=== PATIENT | female | born 1965 | race African-American/Black ===

== ENCOUNTER 2019-12-05 14:00 | Inpatient (IN) | payer OTHER ==
[2019-12-05 16:50] VITALS: BMI 16.9
--- NOTE | 2019-12-05 17:40 | HP ---
CIWA Score Nausea/Vomitin-No Nausea/No Vomiting Muscle Tremors: 3 Anxiety: 1-Mildly Anxious Agitation: 4-Moderately Restless Paroxysmal Sweats: 3 (Increased facial moisture) Orientation: 0-Oriented Tacttile Disturbances: 0-None Auditory Disturbances: 0-None Visual Disturbances: 0-None Headache: 3-Moderate (States headache is a "6") CIWA-Ar Total Score: 14 - Admission Criteria OASAS Guidelines: Admission for Medically Managed Detox: Requires at least one of the followin. CIWA greater than 12 2. Seizures within the past 24 hours 3. Delirium tremens within the past 24 hours 4. Hallucinations within the past 24 hours 5. Acute intervention needed for co occurring medical disorder 6. Acute intervention needed for co occurring psychiatric disorder 7. Severe withdrawal that cannot be handled at a lower level of care (continued vomiting, continued diarrhea, abnormal vital signs) requiring intravenous medication and/or fluids 8. Patient presents the following: CIWA greater than 12 Admission Criteria Met: Admission criteria met Admitting History and Physical - Past Medical History ...LMP: 08/19/15 - Smoking History Smoking history: Current every day smoker Have you smoked in the past 12 months: Yes Aproximately how many cigarettes per day: 15 - Alcohol/Substance Use Hx Alcohol Use: Yes Admission ROS [facility] - [facility] Chief Complaint: " I use alcohol and crack cocaine and I need to get off of it" Allergies/Adverse Reactions: Allergies Allergy/AdvReac Type Severity Reaction Status Date / Time No Known Allergies Allergy Verified 11/23/19 14:53 History of Present Illness: 53 yo presents w/ alcohol withdrawal, seeking detox. Denies seizures, blackouts, overdoses. Alcohol use began at age 18. Currently drinks 1/5 th vodka daily x 1 year. Last drink @ 3 a.m. today. Crack/cocaine began at age 29. Currently uses $2-300/day. Smokes x 1 yr. Nicotine use began at age 15. Smokes 1.5 PPD x over 1 yr. Denies other substance use. PARTIAL SEROQUEL FOUND IN PAT[facility]S [facility]. Informed of policy r/t attempting to bring in contraband or illicit substances. Patient states it will not happen again. PMHx: Cough x 5 days MHHx: Anxiety. Bipolar. Denies depression. Last saw a MH provider in the community. On seroquel. Denies thloughts of harming self or others. SHx: Homeless. Unemployed. Denies legal issues. Search Terms: Lee Ann Galicia, 1965 Search Date: 12/05/2019 05:32:58 PM The Drug Utilization Report below displays all of the controlled substance prescriptions, if any, that your patient has filled in the last twelve months. The information displayed on this report is compiled from pharmacy submissions to the Department, and accurately reflects the information as submitted by the pharmacies. This report was requested by: Terra Dobbs | Reference #: [id number] There are no results for the search terms that you entered. Exam Limitations: No Limitations - Ebola screening Have you traveled outside of the country in the last 21 days: No Have you had contact with anyone from an Ebola affected area: No Have you been sick,other than usual withdrawal symptoms: Yes (Cough x 5 days) Do you have a fever: No - Review of Systems Constitutional: Diaphoresis, Changes in sleep (Difficulty falling asleep), Unintentional Wgt. Loss EENT: reports: Blurred Vision Respiratory: reports: Cough (x 5 days.), Shortness of Breath (when smokes. Denies asthma or COPD) Cardiac: reports: No Symptoms Reported GI: reports: Constipated (Last BM 2 days ago. Juni.) : reports: No Symptoms Reported Musculoskeletal: reports: No Symptoms Reported Integumentary: reports: No Symptoms Reported Neuro: reports: Headache ((R) temporal dull headache "6"), Tremors Endocrine: reports: Increased Thirst Hematology: reports: Anemia ("Low blood") Psychiatric: reports: Orientated x3, Agitated, Anxious Patient History - Patient Medical History Hx Anemia: Yes Hx Asthma: No Hx Chronic Obstructive Pulmonary Disease (COPD): No Hx Cancer: No Hx Cardiac Disorders: No Hx Congestive Heart Failure: No Hx Hypertension: No Hx Hypercholesterolemia: No Hx Pacemaker: No HX Cerebrovascular Accident: No Hx Seizures: No Hx Dementia: No Hx Diabetes: No Hx Gastrointestinal Disorders: No Hx Liver Disease: No Hx Genitourinary Disorders: No Hx Sexually Transmitted Disorders: No Hx Renal Disease (ESRD): No Hx Thyroid Disease: No Hx Human Immunodeficiency Virus (HIV): No (negative) Hx Hepatitis C: No Hx Depression: Yes Hx Suicide Attempt: No Hx Bipolar Disorder: Yes (AND ANXIETY DISORDER) Hx Schizophrenia: No - Patient Surgical History Past Surgical History: Yes Hx Appendectomy: Yes (AT AGE OF 12 YEAERS) Other Surgical History: D &C X2 Anesthesia Reaction: No - PPD History Previous Implant?: Yes Documented Results: Negative w/proof Implanted On Prior [facility] Admission?: Yes PPD to be Administered?: Yes - Reproductive History Patient is a Female of Child Bearing Age (11 -55 yrs old): Yes Last Menstrual Period: 10/29/19 Patient : No - Smoking Cessation Smoking history: Current every day smoker Have you smoked in the past 12 months: Yes Aproximately how many cigarettes per day: 30 Cigars Per Day: 0 Hx Chewing Tobacco Use: No Initiated information on smoking cessation: Yes 'Breaking Loose' booklet given: 12/05/19 - Substance & Tx. History Hx Alcohol Use: Yes Hx Substance Use: Yes Substance Use Type: Alcohol, Cocaine Hx Substance Use Treatment: Yes (detox, ) - Substances abused Alcohol Substance route: Oral Frequency: Daily Amount used: 5th of vodka, 4 beers. Age of first use: 18 Date of last use: 12/05/19 Crack Substance route: Smoking Frequency: Daily Amount used: 2 to 3 hundred dollars. Age of first use: 29 Date of last use: 12/05/19 Admission Physical Exam S - Vital Signs Vital Signs: Vital Signs - 24 hr 12/05/19 16:42 Temperature 96.9 F L Pulse Rate 89 Respiratory 18 Rate Blood Pressure 139/71 - Physical General Appearance: Yes: Mild Distress, Thin, Irritable, Sweating (Increased facial moisture), Anxious HEENTM: Yes: EOMI, Hearing grossly Normal, Normocephalic, Normal Voice, BON, Pharynx Normal, Other (Dry mucous membranes. Thickened whitish saliva) Respiratory: Yes: Lungs Clear (Pulse Ox 97%), Normal Breath Sounds, No Respiratory Distress, Other (Spontaneous cough) Neck: Yes: No masses,lesions,Nodules, Supple Breast: Yes: Breast Exam Deferred Cardiology: Yes: Regular Rhythm, S1, S2 (split), Murmur Abdominal: Yes: Non Tender, Soft, Increased Bowel Sounds, Distended (Slight distention) Genitourinary: Yes: Within Normal Limits Back: Yes: Normal Inspection Musculoskeletal: Yes: full range of Motion, Gait Steady Extremities: Yes: Normal Capillary Refill, Normal Range of Motion, Tremors ( Mild tremors felt) Neurological: Yes: eradicator II-XII NML intact, Fully Oriented, Alert, Motor Strength 5/5, Normal Response Integumentary: Yes: Normal Color, Warm, Moist (Increased facial moisture), Other (Decreased skin turgor (except for facial area)) Lymphatic: Yes: Within Normal Limits - Diagnostic (1) Underweight Current Visit: Yes Status: Chronic (2) Dehydration Current Visit: Yes Status: Acute (3) Other cardiac sounds Current Visit: Yes Status: Acute (4) Alcohol dependence with uncomplicated withdrawal Current Visit: Yes Status: Acute (5) Constipation Current Visit: Yes Status: Chronic Qualifiers: Constipation type: unspecified constipation type Qualified Code(s): K59.00 - Constipation, unspecified (6) Crack cocaine use Current Visit: No Status: Chronic (7) Nicotine dependence Current Visit: Yes Status: Chronic Qualifiers: Nicotine product type: cigarettes Substance use status: uncomplicated Qualified Code(s): F17.210 - Nicotine dependence, cigarettes, uncomplicated (8) Cough Current Visit: Yes Status: Acute Cleared for Admission [facility] - Detox or Rehab [facility] Level of Care: Medically Managed Detox Regimen/Protocol: Librium Claeared for Rehab Admission: No Breathalyzer - Breathalyzer Breathalyzer: 0 Urine Drug Screen - Test Device Lot number: [id number] Expiration date: 09/18/21 - Control Is test valid?: Yes - Results Drug screen NEGATIVE: No Urine drug screen results: WAYLON-Cocaine Inpatient Rehab Admission - Rehab Decision to Admit Inpatient rehab admission?: No
[2019-12-05] MEDS ORDERED: ACETAMINOPHEN 325 MG TABLET (FP) PO PRN ×2 (18:13)
[2019-12-05] MEDS ORDERED: MENTHOL/PHENOL 1 EACH UD MM PRN (18:13)
[2019-12-05] MEDS ORDERED: BISMUTH SUBSALICYLATE 524 MG/30 ML UD PO PRN (18:13)
[2019-12-05] MEDS ORDERED: MAG HYDROX/AL HYDROX/SIMETH 30 ML UNIT-DOSE CUP PO PRN (18:13)
[2019-12-05] MEDS ORDERED: MAGNESIUM CITRATE 300 ML BOTTLE PO PRN (18:13)
[2019-12-05] MEDS ORDERED: MAGNESIUM HYDROX 2400MG/30ML ORAL SUSPENSION 30 ML CUP PO PRN (18:13)
[2019-12-05] MEDS ORDERED: chlordiazePOXIDE HCL 10 MG CAPSULE PO PRN (18:13)
[2019-12-05] MEDS: guaiFENesin 200 MG/10 ML 10 ML UNIT-DOSE CUPS PO SCH (19:42)
[2019-12-06] MEDS: THIAMINE HCL 100 MG TABLET (FP) PO SCH ×2 (00:15→22:13)
[2019-12-06] MEDS: POLYETHYLENE GLYCOL 3350 119 GM BTL PO SCH ×2 (00:15→22:13)
[2019-12-06] MEDS: chlordiazePOXIDE HCL 25 MG CAPSULE PO SCH ×4 (00:15→22:13)
[2019-12-06] MEDS: guaiFENesin 200 MG/10 ML 10 ML UNIT-DOSE CUPS PO SCH ×4 (04:17→17:37)
[2019-12-06 10:30] LABS: HEMATOCRIT 40.5 % (32.4-45.2); HEMOGLOBIN 13.6 GM/dL (10.7-15.3); MCH 31.8 pg (25.7-33.7); MCHC 33.6 g/dl (32.0-36.0); MEAN CELL VOLUME 94.5 fl (80-96); MEAN PLT VOLUME 8.5 fl (7.5-11.1); PLATELET COUNT 416 K/MM3 (134-434); RBC 4.29 M/mm3 (3.60-5.2); RDW 12.8 % (11.6-15.6); WHITE BLOOD COUNT 7.6 K/mm3 (4.0-10.0)
[2019-12-06 10:39] LABS: BILIRUBIN,TOTAL 0.3 mg/dL (0.2-1); BLOOD UREA NITROGEN 10.9 mg/dL (7-18); CALCIUM 9.7 mg/dL (8.5-10.1); CREATININE 0.7 mg/dL (0.55-1.3); POTASSIUM 3.9 mmol/L (3.5-5.1); TOT PROT 6.4 g/dl (6.4-8.2)
--- NOTE | 2019-12-06 10:45 | EKG ---
Test Reason : Blood Pressure : / mmHG Vent. Rate : 084 BPM Atrial Rate : 084 BPM P-R Int : 128 ms QRS Dur : 090 ms QT Int : 390 ms P-R-T Axes : 060 043 058 degrees QTc Int : 460 ms NORMAL SINUS RHYTHM NONSPECIFIC T WAVE ABNORMALITY PROLONGED QT ABNORMAL ECG NO PREVIOUS ECGS AVAILABLE Confirmed by Ash Walls MD ([id number]) on 12/06/2019 10:44:40 AM Referred By: SCAR Confirmed By:Ash Walls MD
--- NOTE | 2019-12-06 10:49 | PN ---
S CIWA - CIWA Score Nausea/Vomitin-No Nausea/No Vomiting Muscle Tremors: 3 Anxiety: 3 Agitation: 3 Paroxysmal Sweats: 3 Orientation: 0-Oriented Tacttile Disturbances: 0-None Auditory Disturbances: 0-None Visual Disturbances: 0-None Headache: 0-None Present CIWA-Ar Total Score: 12 [facility] Progress Note (SOAP) Subjective: sweats shakes chills headache interrupted sleep Objective: 12/06/19 10:30 Vital Signs Temperature 98.2 F 12/06/19 07:03 Pulse Rate 80 12/06/19 07:03 Respiratory Rate 18 12/06/19 07:03 Blood Pressure 125/50 L 12/06/19 07:03 O2 Sat by Pulse Oximetry (%) Laboratory Tests 12/05/19 12/06/19 17:13 07:45 WBC 7.6 RBC 4.29 Hgb 13.6 Hct 40.5 D MCV 94.5 MCH 31.8 D MCHC 33.6 RDW 12.8 D Plt Count 416 D MPV 8.5 D POC Urine HCG, Qual Negative rest of labs pending aaox3 ambulating no acute distress Assessment: 12/06/19 10:50 withdrawal sx Plan: continue detox
[2019-12-06] MEDS: NICOTINE 21 MG/24 HOURS TOPICAL PATCH TD SCH (11:09)
[2019-12-06] MEDS: PRENATAL VITAMINS W/ FOLIC ACID TABLET (FP) PO SCH (11:10)
[2019-12-06] MEDS ORDERED: SIMETHICONE 80 MG TAB.CHEW (FP) PO PRN (15:26)
[2019-12-06] MEDS: IBUPROFEN 400 MG TABLET (FP) PO PRN (17:36)
[2019-12-06] MEDS: MELATONIN 5 MG TABLETS PO PRN (22:14)
[2019-12-07] MEDS: guaiFENesin 200 MG/10 ML 10 ML UNIT-DOSE CUPS PO SCH ×4 (01:10→22:39)
[2019-12-07] MEDS: chlordiazePOXIDE 5 MG CAPSULE PO SCH ×3 (06:10→22:39)
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
[2019-12-07] MEDS: PRENATAL VITAMINS W/ FOLIC ACID TABLET (FP) PO SCH (11:37)
[2019-12-07] MEDS: NICOTINE 21 MG/24 HOURS TOPICAL PATCH TD SCH (11:37)
[2019-12-07] MEDS: IBUPROFEN 400 MG TABLET (FP) PO PRN (14:40)
--- NOTE | 2019-12-07 15:52 | PN ---
S CIWA - CIWA Score Nausea/Vomitin-Mild Nausea/No Vomiting Muscle Tremors: 2 Anxiety: 2 Agitation: 2 Paroxysmal Sweats: No Perspiration Orientation: 0-Oriented Tacttile Disturbances: 1-Very Mild Itch/Numbness Auditory Disturbances: 0-None Visual Disturbances: 0-None Headache: 2-Mild CIWA-Ar Total Score: 10 S Progress Note (SOAP) Subjective: alert,irritable,anxious,interrupted sleep,tremor,coughing Objective: 12/07/19 15:51 Vital Signs Temperature 97.8 F 12/07/19 13:59 Pulse Rate 81 12/07/19 13:59 Respiratory Rate 17 12/07/19 13:59 Blood Pressure 132/79 12/07/19 13:59 O2 Sat by Pulse Oximetry (%) Laboratory Last Values WBC 7.6 K/mm3 (4.0-10.0) 12/06/19 07:45 RBC 4.29 M/mm3 (3.60-5.2) 12/06/19 07:45 Hgb 13.6 GM/dL (10.7-15.3) 12/06/19 07:45 Hct 40.5 % (32.4-45.2) D 12/06/19 07:45 MCV 94.5 fl (80-96) 12/06/19 07:45 MCH 31.8 pg (25.7-33.7) D 12/06/19 07:45 MCHC 33.6 g/dl (32.0-36.0) 12/06/19 07:45 RDW 12.8 % (11.6-15.6) D 12/06/19 07:45 Plt Count 416 K/MM3 (134-434) D 12/06/19 07:45 MPV 8.5 fl (7.5-11.1) D 12/06/19 07:45 Sodium 145 mmol/L (136-145) 12/06/19 07:45 Potassium 3.9 mmol/L (3.5-5.1) 12/06/19 07:45 Chloride 111 mmol/L (98-107) H 12/06/19 07:45 Carbon Dioxide 27 mmol/L (21-32) 12/06/19 07:45 Anion Gap 7 MMOL/L (8-16) L 12/06/19 07:45 BUN 10.9 mg/dL (7-18) 12/06/19 07:45 Creatinine 0.7 mg/dL (0.55-1.3) 12/06/19 07:45 Est GFR (CKD-EPI)AfAm 116.27 12/06/19 07:45 Est GFR (CKD-EPI)NonAf 100.32 12/06/19 07:45 Random Glucose 102 mg/dL (74-106) 12/06/19 07:45 Calcium 9.7 mg/dL (8.5-10.1) 12/06/19 07:45 Total Bilirubin 0.3 mg/dL (0.2-1) 12/06/19 07:45 AST 13 U/L (15-37) L 12/06/19 07:45 ALT 27 U/L (13-61) 12/06/19 07:45 Alkaline Phosphatase 105 U/L (45-117) 12/06/19 07:45 Total Protein 6.4 g/dl (6.4-8.2) 12/06/19 07:45 Albumin 3.0 g/dl (3.4-5.0) L 12/06/19 07:45 POC Urine HCG, Qual Negative 12/05/19 17:13 RPR Titer Nonreactive (NONREACTIVE) 12/06/19 07:45 Assessment: 12/07/19 15:51 withdrawal symptom Plan: continue detox librium regimen
[2019-12-07] MEDS ORDERED: QUEtiapine FUMARATE 100 MG TABLET (FP) PO SCH (22:00)
[2019-12-07] MEDS: QUEtiapine FUMARATE 100 MG TABLET (FP) PO SCH (22:39)
[2019-12-07] MEDS: THIAMINE HCL 100 MG TABLET (FP) PO SCH (22:39)
[2019-12-08] MEDS ORDERED: chlordiazePOXIDE HCL 10 MG CAPSULE PO PRN
[2019-12-08] MEDS: guaiFENesin 200 MG/10 ML 10 ML UNIT-DOSE CUPS PO SCH (01:17)
[2019-12-08] MEDS: chlordiazePOXIDE HCL 10 MG CAPSULE PO SCH ×2 (07:25→15:56)
--- NOTE | 2019-12-08 10:39 | DS ---
[facility] Detox Discharge Summary Admission Date: 12/05/19 Discharge Date: 12/08/19 - History Present History: Alcohol Dependence, Cocaine Dependence Pertinent Past History: Pt was admitted three days ago for detox from alcohol and cocaine use. Pt states feeling fine today. No complaints. Going to rehab at [facility] - [facility]. Vital Signs - 24 hr 12/07/19 12/07/19 12/07/19 13:59 16:44 21:00 Temperature 97.8 F 99.1 F 97.9 F Pulse Rate 81 81 80 Respiratory 17 17 16 Rate Blood Pressure 132/79 119/74 110/74 12/08/19 12/08/19 12/08/19 00:32 03:57 07:31 Temperature 100.8 F H Pulse Rate 91 H Respiratory 20 18 18 Rate Blood Pressure 115/71 12/08/19 12/08/19 08:50 10:28 Temperature 98.2 F 98.2 F Pulse Rate 97 H 97 H Respiratory 18 18 Rate Blood Pressure 107/48 L 122/65 Laboratory Tests 12/05/19 12/06/19 12/06/19 17:13 07:45 07:45 WBC 7.6 RBC 4.29 Hgb 13.6 Hct 40.5 D MCV 94.5 MCH 31.8 D MCHC 33.6 RDW 12.8 D Plt Count 416 D MPV 8.5 D Sodium 145 Potassium 3.9 Chloride 111 H Carbon Dioxide 27 Anion Gap 7 L BUN 10.9 Creatinine 0.7 Est GFR (CKD-EPI)AfAm 116.27 Est GFR (CKD-EPI)NonAf 100.32 Random Glucose 102 Calcium 9.7 Total Bilirubin 0.3 AST 13 L ALT 27 Alkaline Phosphatase 105 Total Protein 6.4 Albumin 3.0 L POC Urine HCG, Qual Negative RPR Titer 12/06/19 07:45 WBC RBC Hgb Hct MCV MCH MCHC RDW Plt Count MPV Sodium Potassium Chloride Carbon Dioxide Anion Gap BUN Creatinine Est GFR (CKD-EPI)AfAm Est GFR (CKD-EPI)NonAf Random Glucose Calcium Total Bilirubin AST ALT Alkaline Phosphatase Total Protein Albumin POC Urine HCG, Qual RPR Titer Nonreactive - Physical Exam Results Vital Signs: Vital Signs Temperature 98.2 F 12/08/19 10:28 Pulse Rate 97 H 12/08/19 10:28 Respiratory Rate 18 12/08/19 10:28 Blood Pressure 122/65 12/08/19 10:28 O2 Sat by Pulse Oximetry (%) - Treatment Hospital Course: Detox Protocol Followed, Detoxed Safely, Responded well, Discharged Condition Good - Medication Discharge Medications: Ambulatory Orders Quetiapine Fumarate [Seroquel] 100 tab PO HS #30 tablet 04/01/16 Quetiapine Fumarate [Seroquel -] 50 mg PO DAILY 11/23/19 - AMA Did Patient Leave Against Medical Advice: No
[2019-12-08] MEDS: PRENATAL VITAMINS W/ FOLIC ACID TABLET (FP) PO SCH (12:05)
[2019-12-08] MEDS: NICOTINE 21 MG/24 HOURS TOPICAL PATCH TD SCH (12:05)
[2019-12-08 15:01] LABS: EPI CELLS 16.4 /HPF (0-5/HPF); HYALINE CASTS 1 /lpf (0-8); PH,URINE 7.5 (5.0-8.0); URINE APPEARANCE CLOUDY; URINE BACTERIA 312.3 /hpf (NEGATIVE); URINE BILIRUBIN NEGATIVE (NEGATIVE); URINE COLOR YELLOW; URINE GLUCOSE (UA) NEGATIVE (NEGATIVE); URINE KETONE NEGATIVE (NEGATIVE); URINE LEUK ESTERASE TRACE (NEGATIVE); URINE NITRITE NEGATIVE (NEGATIVE); URINE PROTEIN NEGATIVE (NEGATIVE); URINE RBC 2 /hpf (0-4); URINE UROBILINOGEN 0.2 mg/dL (0.2-1.0); URINE WBC 10 /hpf (0-5)
--- NOTE | 2019-12-08 19:25 | PN ---
[facility] Progress Note Note: Patient transferred from detox to rehab. Detox
--- NOTE | 2019-12-08 19:27 | HP ---
[facility] Rehab Assess/Revision - Admission History Admitted to Rehab from: [facility] Date of Admission to Rehab: 12/08/2019 - Vital signs Vital Signs: Vital Signs Period Temp Pulse Resp BP Sys/Sesay Pulse Ox Last 24 Hr 97.9 F-100.8 F 80-99 16-20 107-122/47-74 - Findings Detox History & Physical reviewed: Yes Concur with findings: Yes Comments/Additional Findings: PATIENT DETOXED FROM ALCOHOL , STABLE, AND TRANSFERED FROM DETOX UNIT TO REHAB. Inpatient Rehab Admission - Rehab Decision to Admit Inpatient rehab admission?: Yes - Initial Determination Are CD services needed?: Yes Free of communicable disease: Yes Not in need of hospitalization: Yes - Rehab Admission Criteria Previous failed treatment: Yes Poor recovery environment: Yes Comorbidities: Yes Lacks judgement: No Patient is meeting Inpatient Rehab admission criteria:: Yes
[2019-12-08] MEDS: QUEtiapine FUMARATE 100 MG TABLET (FP) PO SCH (22:20)
[2019-12-08] MEDS: THIAMINE HCL 100 MG TABLET (FP) PO SCH (22:20)
[2019-12-08] MEDS: DOCUSATE SODIUM 100 MG CAPSULE (FP) PO SCH (22:20)
[2019-12-08] MEDS: IBUPROFEN 400 MG TABLET (FP) PO PRN (22:21)
[2019-12-09] MEDS ORDERED: chlordiazePOXIDE HCL 10 MG CAPSULE PO ONE (05:00)
[2019-12-09] MEDS: DOCUSATE SODIUM 100 MG CAPSULE (FP) PO SCH ×3 (06:57→21:13)
[2019-12-09] MEDS: NICOTINE 21 MG/24 HOURS TOPICAL PATCH TD SCH (10:45)
[2019-12-09] MEDS: PRENATAL VITAMINS W/ FOLIC ACID TABLET (FP) PO SCH (10:45)
[2019-12-09] MEDS: THIAMINE HCL 100 MG TABLET (FP) PO SCH (21:13)
[2019-12-09] MEDS: QUEtiapine FUMARATE 100 MG TABLET (FP) PO SCH (21:13)
[2019-12-10] MEDS: DOCUSATE SODIUM 100 MG CAPSULE (FP) PO SCH ×3 (06:35→21:02)
[2019-12-10] MEDS: PRENATAL VITAMINS W/ FOLIC ACID TABLET (FP) PO SCH (10:07)
[2019-12-10] MEDS ORDERED: NICOTINE POLACRILEX 2 MG GUM BUC PRN (10:51)
[2019-12-10] MEDS: NICOTINE 21 MG/24 HOURS TOPICAL PATCH TD SCH ×2 (11:06→11:07)
[2019-12-10] MEDS: IBUPROFEN 400 MG TABLET (FP) PO PRN (14:19)
[2019-12-10] MEDS: METHOCARBAMOL 500 MG TABLET PO PRN (14:19)
[2019-12-10] MEDS: THIAMINE HCL 100 MG TABLET (FP) PO SCH (21:03)
[2019-12-10] MEDS: QUEtiapine FUMARATE 100 MG TABLET (FP) PO SCH (21:03)
[2019-12-11] MEDS: DOCUSATE SODIUM 100 MG CAPSULE (FP) PO SCH ×3 (06:39→21:30)
[2019-12-11] MEDS: IBUPROFEN 400 MG TABLET (FP) PO PRN (06:58)
[2019-12-11] MEDS: METHOCARBAMOL 500 MG TABLET PO PRN (06:58)
[2019-12-11] MEDS: PRENATAL VITAMINS W/ FOLIC ACID TABLET (FP) PO SCH (10:51)
[2019-12-11] MEDS: NICOTINE 21 MG/24 HOURS TOPICAL PATCH TD SCH (10:51)
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
[2019-12-11] MEDS: MINERAL OIL/PETROLAT/WATER TOPICAL CREAM 113 GM JAR TP SCH (15:59)
[2019-12-11] MEDS: THIAMINE HCL 100 MG TABLET (FP) PO SCH (21:30)
[2019-12-11] MEDS: QUEtiapine FUMARATE 100 MG TABLET (FP) PO SCH (21:30)
[2019-12-12] MEDS: DOCUSATE SODIUM 100 MG CAPSULE (FP) PO SCH ×3 (06:43→21:05)
[2019-12-12] MEDS: NICOTINE 21 MG/24 HOURS TOPICAL PATCH TD SCH (10:37)
[2019-12-12] MEDS: MINERAL OIL/PETROLAT/WATER TOPICAL CREAM 113 GM JAR TP SCH (10:39)
[2019-12-12] MEDS ORDERED: PT OWN MED DRAWER 7, Y5N ONE (10:39)
[2019-12-12] MEDS: IBUPROFEN 400 MG TABLET (FP) PO PRN (10:40)
[2019-12-12] MEDS: PRENATAL VITAMINS W/ FOLIC ACID TABLET (FP) PO SCH (10:40)
--- NOTE | 2019-12-12 11:26 | PN ---
Psychiatric Progress Note Vital Signs: Vital Signs Period Temp Pulse Resp BP Sys/Sesay Pulse Ox Last 24 Hr 16-16 Date of Session: 12/12/19 Chief Complaint:: "i'm not sleeping well." HPI: Patient admitted to for alcohol and cocaine dependence. Consultation ordered as patient reports difficulty sleeping through the night. ROS: Patient is calm, cooperative and alert + Oriented X3. Patient presents as mildly lethagic. Current Medications: Active Medications Generic Name Dose Route Start Last Admin Trade Name Freq PRN Reason Stop Dose Admin Acetaminophen 650 mg 12/05/19 18:13 Tylenol - PO Q6H PRN PAIN LEVEL 4 - 6 Acetaminophen 650 mg 12/05/19 18:13 Tylenol - PO Q6H PRN FEVER Al Hydroxide/Mg Hydroxide 30 ml 12/05/19 18:13 Mylanta Oral Suspension - PO Q6H PRN DYSPEPSIA Bismuth Subsalicylate 524 mg 12/05/19 18:13 Pepto-Bismol - PO Q1H PRN DIARRHEA Docusate Sodium 100 mg 12/08/19 22:00 12/12/19 06:43 Colace - PO Not Given TID ROSHNI Ibuprofen 400 mg 12/05/19 18:13 12/12/19 10:40 Motrin - PO 400 mg Q6H PRN Administration PAIN LEVEL 1 - 3 Magnesium Citrate 300 ml 12/05/19 18:13 Citroma - PO Q48H PRN CONSTIPATION Magnesium Hydroxide 30 ml 12/05/19 18:13 Milk Of Magnesia - PO PRN PRN CONSTIPATION Melatonin 5 mg 12/05/19 18:13 12/06/19 22:14 Melatonin PO 5 mg HS PRN Administration INSOMNIA Multi-Ingredient Lotion 1 applic 12/11/19 14:45 12/12/19 10:39 Eucerin (Small Jar) - TP 1 applic DAILY ROSHNI Administration Nicotine 21 mg 12/10/19 11:00 12/12/19 10:37 Nicoderm Patch - TD 21 mg DAILY ROSHNI Administration Nicotine Polacrilex 2 mg 12/05/19 18:13 Nicorette Gum - BUC Q2H PRN NICOTINE REPLACEMENT RX Nicotine Polacrilex 2 mg 12/10/19 10:51 Nicorette Gum - BUC Q2H PRN NICOTINE REPLACEMENT RX Multivit/Folic Acid/Iron 1 tab 12/06/19 10:00 12/12/19 10:40 Vitamins (Sjr) - PO 1 tab DAILY ROSHNI Administration Quetiapine Fumarate 100 mg 12/07/19 22:00 12/11/19 21:30 Seroquel - PO 100 mg HS ROSHNI Administration Simethicone 80 mg 12/06/19 15:26 Mylicon - PO Q4H PRN GAS Suvorexant 10 mg 12/12/19 22:00 Belsomra PO HS PRN INSOMNIA Thiamine HCl 100 mg 12/05/19 22:00 12/11/19 21:30 Vitamin B1 - PO 100 mg HS ROSHNI Administration Medication(s) Change(s): Yes. Will Belsomra 10mg HS PRN. Current Side Effect: No Lab tests ordered: No Lab tests reviewed: Yes Provider note:: Patient reports poor sleep. Patient inquiring on an increase in Seroquel. Patient is currently prescribed seroquel 100mg. Vital signs reviewed. Patient with a blood pressure of 100/ 58 on 12/11/19 and 110/66 on 12/12/19. Ms. Galicia reports history of one sycope eposide after accepting seroquel 200mg HS. At this time Seroquel will remain at 100mg HS. Will order Belsomra 10mg HS PRN. Benefits and side effects discussed. Verbal consent given. Total face to face time:: 25 Mental Status Exam - Mental Status Exam Alert and Oriented to: Time, Place, Person Cognitive Function: Good Patient Appearance: Well Groomed Mood: Withdrawn Affect: Appropriate Patient Behavior: Fatigued Speech Pattern: Appropriate Voice Loudness: Normal Thought Process: Intact, Goal Oriented Thought Disorder: Not Present Hallucinations: Denies Suicidal Ideation: Denies Homicidal Ideation: Denies Insight/Judgement: Poor Sleep: Poorly Appetite: Fair Muscle strength/Tone: Normal Gait/Station: Normal Psychiatric Treatment Plan - Problem List (1) Alcohol use disorder Current Visit: Yes (2) Cocaine dependence Current Visit: Yes (3) Substance-induced sleep disorder Current Visit: Yes (4) Nicotine dependence Current Visit: Yes Qualifiers: Nicotine product type: cigarettes Substance use status: uncomplicated Qualified Code(s): F17.210 - Nicotine dependence, cigarettes, uncomplicated (5) PTSD (post-traumatic stress disorder) Current Visit: Yes (6) Substance induced mood disorder Current Visit: Yes
[2019-12-12] MEDS: THIAMINE HCL 100 MG TABLET (FP) PO SCH (21:05)
[2019-12-12] MEDS: QUEtiapine FUMARATE 100 MG TABLET (FP) PO SCH (21:05)
[2019-12-12] MEDS ORDERED: SUVOREXANT 10 MG TABLET PO PRN (22:00)
[2019-12-13] MEDS: DOCUSATE SODIUM 100 MG CAPSULE (FP) PO SCH ×3 (06:39→21:41)
--- NOTE | 2019-12-13 09:22 | PN ---
[facility] Progress Note (SOAP) Subjective: Called to see patient for vomiting. Patient found sitting on floor vomiting. States she has been coughing and robitussin has not helped. Reports bringing up yellow sputum. She reports left sided flank pain and states that she was treated for the same at [facility] before coming here. Denies chest tube insertion and states she was told that it would resolve on its own. Also stated that she cannot sleep at night and that the seroquel dose in insufficient (N.B. patient was found with a seroquel in her sock upon admission examination). PMHx of constipation, last BM today. Ate a peanut butter sandwich after she vomited without any further vomiting. Objective: 12/13/19 09:28 Vital Signs Period Temp Pulse Resp BP Sys/Sesay Pulse Ox Last 24 Hr 97.9 F-98.0 F 91-106 16-18 102-110/56-66 12/13/19 09:32 p/E: General: Looks ill HEENTM: throat clear, nares clear Neck: supple Lungs: clear Heart: s1s2 ABD: soft, non-tender, non-distended, +BS Assessment: Vomiting, unspecified cause No signs of infection 12/13/19 09:33 12/13/19 09:35 Plan: CXR ordered Tigan ordered, prn Advised to increase fluids Psychiatric consult to evaluate for insomnia
[2019-12-13] MEDS ORDERED: TRIMETHOBENZAMIDE HCL 300 MG CAPSULE PO PRN (09:37)
[2019-12-13] MEDS: MINERAL OIL/PETROLAT/WATER TOPICAL CREAM 113 GM JAR TP SCH (10:36)
[2019-12-13] MEDS: NICOTINE 21 MG/24 HOURS TOPICAL PATCH TD SCH (10:36)
[2019-12-13] MEDS: PRENATAL VITAMINS W/ FOLIC ACID TABLET (FP) PO SCH (10:36)
[2019-12-13] MEDS: CYCLOBENZAPRINE HCL 5 MG TABLET PO PRN (21:41)
[2019-12-13] MEDS: THIAMINE HCL 100 MG TABLET (FP) PO SCH (21:41)
[2019-12-13] MEDS: QUEtiapine FUMARATE 100 MG TABLET (FP) PO SCH (21:41)
[2019-12-14] MEDS: DOCUSATE SODIUM 100 MG CAPSULE (FP) PO SCH ×3 (07:35→22:06)
[2019-12-14] MEDS: MINERAL OIL/PETROLAT/WATER TOPICAL CREAM 113 GM JAR TP SCH (09:37)
[2019-12-14] MEDS: NICOTINE 21 MG/24 HOURS TOPICAL PATCH TD SCH (09:37)
[2019-12-14] MEDS: PRENATAL VITAMINS W/ FOLIC ACID TABLET (FP) PO SCH (09:38)
[2019-12-14] MEDS: IBUPROFEN 400 MG TABLET (FP) PO PRN (09:39)
[2019-12-14] MEDS: THIAMINE HCL 100 MG TABLET (FP) PO SCH (22:06)
[2019-12-14] MEDS: QUEtiapine FUMARATE 100 MG TABLET (FP) PO SCH (22:06)
[2019-12-14] MEDS: MELATONIN 5 MG TABLETS PO PRN (22:07)
[2019-12-15] MEDS: DOCUSATE SODIUM 100 MG CAPSULE (FP) PO SCH ×3 (07:08→21:09)
[2019-12-15] MEDS: PRENATAL VITAMINS W/ FOLIC ACID TABLET (FP) PO SCH (09:47)
[2019-12-15] MEDS: NICOTINE 21 MG/24 HOURS TOPICAL PATCH TD SCH (09:47)
[2019-12-15] MEDS: MINERAL OIL/PETROLAT/WATER TOPICAL CREAM 113 GM JAR TP SCH (09:47)
[2019-12-15] MEDS: guaiFENesin 200 MG/10 ML 10 ML UNIT-DOSE CUPS PO PRN (14:02)
[2019-12-15] MEDS: QUEtiapine FUMARATE 100 MG TABLET (FP) PO SCH (21:07)
[2019-12-15] MEDS: MELATONIN 5 MG TABLETS PO PRN (21:07)
[2019-12-15] MEDS: THIAMINE HCL 100 MG TABLET (FP) PO SCH (21:07)
[2019-12-15] MEDS ORDERED: SUVOREXANT 10 MG TABLET PO PRN (22:00)
--- NOTE | 2019-12-15 22:25 | PN ---
[facility] Progress Note Note: Psychiatry Attending's note : Contact made with nurse in charge. Spoke via telephone with FRANCIS Raya. At 21:42. Issue : reason for request for psychiatric follow-up. As per nurse, patient has complained of daytime sleepiness. Ms Galicia has requested a decrease in ths dose of suvorexant. Belsomra has not been dispensed by the evening nurse. Held. Seroquel has already been given at time of this leader writer's call. Psychiatric re-consult in AM.
[2019-12-16] MEDS: DOCUSATE SODIUM 100 MG CAPSULE (FP) PO SCH ×3 (06:36→21:06)
[2019-12-16] MEDS: NICOTINE 21 MG/24 HOURS TOPICAL PATCH TD SCH (09:16)
[2019-12-16] MEDS: MINERAL OIL/PETROLAT/WATER TOPICAL CREAM 113 GM JAR TP SCH (09:17)
[2019-12-16] MEDS: PRENATAL VITAMINS W/ FOLIC ACID TABLET (FP) PO SCH (09:17)
[2019-12-16] MEDS: NICOTINE POLACRILEX 2 MG GUM BUC PRN ×2 (09:58→16:47)
[2019-12-16] MEDS: guaiFENesin 200 MG/10 ML 10 ML UNIT-DOSE CUPS PO PRN ×2 (09:58→16:44)
--- NOTE | 2019-12-16 14:37 | PN ---
Psychiatric Progress Note Vital Signs: Vital Signs Period Temp Pulse Resp BP Sys/Sesay Pulse Ox Last 24 Hr 98.2 F 98 16-16 104/69 Date of Session: 12/16/19 Chief Complaint:: "i'm not sleeping well." HPI: Patient admitted to for alcohol and cocaine dependence. Consultation ordered to address insomnia. ROS: Patient is alert +oriented x3. Current Medications: Active Medications Generic Name Dose Route Start Last Admin Trade Name Freq PRN Reason Stop Dose Admin Acetaminophen 650 mg 12/05/19 18:13 Tylenol - PO Q6H PRN PAIN LEVEL 4 - 6 Acetaminophen 650 mg 12/05/19 18:13 Tylenol - PO Q6H PRN FEVER Al Hydroxide/Mg Hydroxide 30 ml 12/05/19 18:13 Mylanta Oral Suspension - PO Q6H PRN DYSPEPSIA Bismuth Subsalicylate 524 mg 12/05/19 18:13 Pepto-Bismol - PO Q1H PRN DIARRHEA Cyclobenzaprine HCl 5 mg 12/13/19 14:44 12/13/19 21:41 Cyclobenzaprine Hcl PO 5 mg TID PRN Administration MUSCLE SPASMS Docusate Sodium 100 mg 12/08/19 22:00 12/16/19 13:09 Colace - PO Not Given TID ROSHNI Guaifenesin 10 ml 12/14/19 10:52 12/16/19 09:58 Robitussin - PO 10 ml Q4H PRN Administration COUGH Ibuprofen 400 mg 12/05/19 18:13 12/14/19 09:39 Motrin - PO 400 mg Q6H PRN Administration PAIN LEVEL 1 - 3 Magnesium Citrate 300 ml 12/05/19 18:13 Citroma - PO Q48H PRN CONSTIPATION Magnesium Hydroxide 30 ml 12/05/19 18:13 Milk Of Magnesia - PO PRN PRN CONSTIPATION Melatonin 5 mg 12/05/19 18:13 12/15/19 21:07 Melatonin PO 5 mg HS PRN Administration INSOMNIA Multi-Ingredient Lotion 1 applic 12/11/19 14:45 12/16/19 09:17 Eucerin (Small Jar) - TP Not Given DAILY ROSHNI Nicotine 21 mg 12/10/19 11:00 12/16/19 09:16 Nicoderm Patch - TD 21 mg DAILY ROSHNI Administration Nicotine Polacrilex 2 mg 12/05/19 18:13 12/16/19 09:58 Nicorette Gum - BUC 2 mg Q2H PRN Administration NICOTINE REPLACEMENT RX Nicotine Polacrilex 2 mg 12/10/19 10:51 Nicorette Gum - BUC Q2H PRN NICOTINE REPLACEMENT RX Multivit/Folic Acid/Iron 1 tab 12/06/19 10:00 12/16/19 09:17 Vitamins (Sjr) - PO 1 tab DAILY ROSHNI Administration Quetiapine Fumarate 100 mg 12/07/19 22:00 12/15/19 21:07 Seroquel - PO 100 mg HS ROSHNI Administration Simethicone 80 mg 12/06/19 15:26 Mylicon - PO Q4H PRN GAS Thiamine HCl 100 mg 12/05/19 22:00 12/15/19 21:07 Vitamin B1 - PO 100 mg HS ROSHNI Administration Trimethobenzamide HCl 300 mg 12/13/19 09:37 12/13/19 10:37 Tigan - PO 300 mg TID PRN Administration NAUSEA AND/OR VOMITING Medication(s) Change(s): Yes. Current Side Effect: No Lab tests ordered: No Lab tests reviewed: Yes Provider note:: Patient seen by service writer on 12/12/19 and was orderd belsomra 10mg for insomnia. Patient only recalls taking the medication once which led to daytime sleepiness. Patient has accepted melatonin 5mg and stated it is not effective. Patient not interested in accepting a higher dose of melatonin. Patient in agreement in accepting Belsomra 5mg HS PRN. Patient educated on the importance of proper sleep hygiene. Benefits and side effects discussed. Verbal consent given. Total face to face time:: 25 Mental Status Exam - Mental Status Exam Alert and Oriented to: Time, Place, Person Cognitive Function: Good Patient Appearance: Well Groomed Mood: Euthymic Affect: Appropriate Patient Behavior: Appropriate, Cooperative Speech Pattern: Appropriate Voice Loudness: Normal Thought Process: Intact, Goal Oriented Thought Disorder: Not Present Hallucinations: Denies Suicidal Ideation: Denies Homicidal Ideation: Denies Insight/Judgement: Poor Sleep: Poorly Appetite: Fair Muscle strength/Tone: Normal Gait/Station: Normal Psychiatric Treatment Plan - Problem List (1) Alcohol use disorder Current Visit: Yes (2) Cocaine dependence Current Visit: Yes (3) Substance-induced sleep disorder Current Visit: Yes (4) Nicotine dependence Current Visit: Yes Qualifiers: Nicotine product type: cigarettes Substance use status: uncomplicated Qualified Code(s): F17.210 - Nicotine dependence, cigarettes, uncomplicated (5) PTSD (post-traumatic stress disorder) Current Visit: Yes (6) Substance induced mood disorder Current Visit: Yes
[2019-12-16] MEDS ORDERED: PT OWN MED DRAWER 7, Y5N ONE (15:16)
[2019-12-16] MEDS: THIAMINE HCL 100 MG TABLET (FP) PO SCH (21:04)
[2019-12-16] MEDS: QUEtiapine FUMARATE 100 MG TABLET (FP) PO SCH (21:04)
[2019-12-16] MEDS: MELATONIN 5 MG TABLETS PO PRN (21:05)
[2019-12-16] MEDS: SUVOREXANT 5 MG TABLET PO PRN (21:06)
[2019-12-17] MEDS: DOCUSATE SODIUM 100 MG CAPSULE (FP) PO SCH ×3 (07:00→21:11)
[2019-12-17] MEDS ORDERED: PT OWN MED DRAWER 7, Y5N ONE (08:30)
[2019-12-17] MEDS: MINERAL OIL/PETROLAT/WATER TOPICAL CREAM 113 GM JAR TP SCH (09:12)
[2019-12-17] MEDS: NICOTINE 21 MG/24 HOURS TOPICAL PATCH TD SCH (09:12)
[2019-12-17] MEDS: guaiFENesin 200 MG/10 ML 10 ML UNIT-DOSE CUPS PO PRN (09:12)
[2019-12-17] MEDS: PRENATAL VITAMINS W/ FOLIC ACID TABLET (FP) PO SCH (09:12)
[2019-12-17] MEDS: QUEtiapine FUMARATE 100 MG TABLET (FP) PO SCH (21:11)
[2019-12-17] MEDS: THIAMINE HCL 100 MG TABLET (FP) PO SCH (21:11)
[2019-12-17] MEDS: MELATONIN 5 MG TABLETS PO PRN (21:12)
[2019-12-17] MEDS: SUVOREXANT 5 MG TABLET PO PRN (21:13)
[2019-12-18] MEDS: DOCUSATE SODIUM 100 MG CAPSULE (FP) PO SCH (06:50)
--- NOTE | 2019-12-18 09:13 | PN ---
[facility] Progress Note (SOAP) Subjective: c/o unresolved cough with greenish sputum. Reports changes to yellow/brown then green and has been having symptoms for 2 weeks and chest discomfort "when I cough". Denies fever or throat pain. Objective: 12/19/19 10:20 Vital Signs (72 hours) 12/17/19 12/17/19 12/18/19 03:26 06:40 00:39 Temperature 97.7 F Pulse Rate 77 Respiratory 16 18 16 Rate Blood Pressure 104/64 12/18/19 12/18/19 12/19/19 03:28 06:59 06:49 Temperature 97.8 F 97.9 F Pulse Rate 99 H 85 Respiratory 16 18 18 Rate Blood Pressure 117/70 113/66 Vital Signs - 24 hr 12/18/19 12/18/19 12/18/19 00:39 03:28 06:59 Temperature 97.8 F Pulse Rate 99 H Respiratory 16 16 18 Rate Blood Pressure 117/70 Cardiac:s1 s2,rrr Lungs:cta Throat:no swelling,redness. 12/19/19 10:27 Assessment: 12/19/19 10:23 Unresolving Cough with abnl sputum Plan: Will treat with Amoxicillin 500 mg po TID x 7 days increase po fluids Robitussin DM PRN as directed.
[2019-12-18] MEDS ORDERED: AMOXICILLIN 500 MG CAPSULE (FP) PO ONE (09:15)
[2019-12-18] MEDS: NICOTINE 21 MG/24 HOURS TOPICAL PATCH TD SCH (09:24)
[2019-12-18] MEDS: PRENATAL VITAMINS W/ FOLIC ACID TABLET (FP) PO SCH (09:24)
[2019-12-18] MEDS: MINERAL OIL/PETROLAT/WATER TOPICAL CREAM 113 GM JAR TP SCH (09:24)
[2019-12-18] MEDS: NICOTINE POLACRILEX 2 MG GUM BUC PRN (09:25)
[2019-12-18] MEDS: AMOXICILLIN 500 MG CAPSULE (FP) PO SCH ×2 (13:38→21:26)
[2019-12-18] MEDS: DOCUSATE SODIUM 100 MG CAPSULE (FP) PO PRN (21:26)
[2019-12-18] MEDS: CYCLOBENZAPRINE HCL 5 MG TABLET PO PRN (21:26)
[2019-12-18] MEDS: THIAMINE HCL 100 MG TABLET (FP) PO SCH (21:26)
[2019-12-18] MEDS: QUEtiapine FUMARATE 100 MG TABLET (FP) PO SCH (21:26)
[2019-12-18] MEDS: MELATONIN 5 MG TABLETS PO PRN (21:26)
[2019-12-19] MEDS: AMOXICILLIN 500 MG CAPSULE (FP) PO SCH ×3 (06:55→21:02)
[2019-12-19] MEDS ORDERED: PT OWN MED DRAWER 7, Y5N ONE (09:00)
[2019-12-19] MEDS: NICOTINE 21 MG/24 HOURS TOPICAL PATCH TD SCH (10:28)
[2019-12-19] MEDS: PRENATAL VITAMINS W/ FOLIC ACID TABLET (FP) PO SCH (10:28)
[2019-12-19] MEDS: NICOTINE POLACRILEX 2 MG GUM BUC PRN (10:29)
[2019-12-19] MEDS: MINERAL OIL/PETROLAT/WATER TOPICAL CREAM 113 GM JAR TP SCH (10:30)
[2019-12-19] MEDS: CYCLOBENZAPRINE HCL 5 MG TABLET PO PRN (21:02)
[2019-12-19] MEDS: QUEtiapine FUMARATE 100 MG TABLET (FP) PO SCH (21:02)
[2019-12-19] MEDS: THIAMINE HCL 100 MG TABLET (FP) PO SCH (21:02)
[2019-12-19] MEDS: MELATONIN 5 MG TABLETS PO PRN (21:02)
[2019-12-20] MEDS: AMOXICILLIN 500 MG CAPSULE (FP) PO SCH ×3 (06:59→21:25)
[2019-12-20] MEDS: NICOTINE 21 MG/24 HOURS TOPICAL PATCH TD SCH (09:12)
[2019-12-20] MEDS: PRENATAL VITAMINS W/ FOLIC ACID TABLET (FP) PO SCH (09:12)
[2019-12-20] MEDS: MINERAL OIL/PETROLAT/WATER TOPICAL CREAM 113 GM JAR TP SCH (09:12)
[2019-12-20] MEDS ORDERED: PT OWN MED DRAWER 7, Y5N ONE (09:40)
[2019-12-20] MEDS: THIAMINE HCL 100 MG TABLET (FP) PO SCH (21:25)
[2019-12-20] MEDS: QUEtiapine FUMARATE 100 MG TABLET (FP) PO SCH (21:25)
[2019-12-20] MEDS: CYCLOBENZAPRINE HCL 5 MG TABLET PO PRN (21:25)
[2019-12-20] MEDS: MELATONIN 5 MG TABLETS PO PRN (21:26)
[2019-12-21] MEDS: AMOXICILLIN 500 MG CAPSULE (FP) PO SCH ×3 (06:54→21:38)
[2019-12-21] MEDS: NICOTINE 21 MG/24 HOURS TOPICAL PATCH TD SCH (10:20)
[2019-12-21] MEDS: PRENATAL VITAMINS W/ FOLIC ACID TABLET (FP) PO SCH (10:21)
[2019-12-21] MEDS: MINERAL OIL/PETROLAT/WATER TOPICAL CREAM 113 GM JAR TP SCH (10:21)
--- NOTE | 2019-12-21 13:00 | PN ---
[facility] Progress Note (SOAP) Subjective: Patient to be discharged tomorrow. PMHx: 53 yo presents w/ alcohol use disorder; transferred from detox to rehab on 2019 Denies seizures, blackouts, overdoses. Alcohol use began at age 18. Currently drinks 1/5 th vodka daily x 1 year. Crack/cocaine began at age 29. Currently uses $2-300/day. Smokes x 1 yr. Nicotine use began at age 15. Smokes 1.5 PPD x over 1 yr. Denies other substance use. MHHx: Anxiety. Bipolar. Denies depression. Last saw a MH provider in the community. On seroquel. Denies thoughts of harming self or others. SHx: Homeless. Unemployed. Denies legal issues. HOSPITAL COURSE: Patient attended groups, had 1:1 with her counselor, and was seen by psychiatric service. She had one incident of vomiting that was resolved , and c/o cough with green sputum treated with amoxicillin. Objective: 12/21/19 13:02 Vital Signs Period Temp Pulse Resp BP Sys/Sesay Pulse Ox Last 24 Hr 97.9 F 81 16-18 93/61 P/E: General: no apparent distress HEENTM" normocephalic NECK: supple MSK: full weight bearing, steady gait NEURO: no cognitive deficits noted, Assessment: ETOH use disorder Medically stable for discharge 12/21/19 13:03 12/21/19 13:04 Plan: Patient will go to [facility] as tolerated Finish Amoxicillin prescription, 3 days left. Follow up with primary care at [facility].
--- NOTE | 2019-12-21 14:35 | DS ---
[facility] Rehab Discharge Summary - [facility] Rehab Discharge Summary Admission Date: 12/05/19 Discharge Date: 12/21/19 - History Present History: Alcohol dependence, Cocaine dependence Additional Comments: Pt is a 54 y/o female with a hx Pertinent Past History: Anemia - Discharge Physical Exam Vital Signs: Vital Signs Temperature 97.9 F 12/21/19 07:21 Pulse Rate 81 12/21/19 07:21 Respiratory Rate 18 12/21/19 07:21 Blood Pressure 93/61 12/21/19 07:21 O2 Sat by Pulse Oximetry (%) Pertinent Admission Physical Exam Findings: Laboratory Tests 12/05/19 12/06/19 12/06/19 17:13 07:45 07:45 WBC 7.6 RBC 4.29 Hgb 13.6 Hct 40.5 D MCV 94.5 MCH 31.8 D MCHC 33.6 RDW 12.8 D Plt Count 416 D MPV 8.5 D Sodium 145 Potassium 3.9 Chloride 111 H Carbon Dioxide 27 Anion Gap 7 L BUN 10.9 Creatinine 0.7 Est GFR (CKD-EPI)AfAm 116.27 Est GFR (CKD-EPI)NonAf 100.32 Random Glucose 102 Calcium 9.7 Total Bilirubin 0.3 AST 13 L ALT 27 Alkaline Phosphatase 105 Total Protein 6.4 Albumin 3.0 L Urine Color Urine Appearance Urine pH Ur Specific [place] Urine Protein Urine Glucose (UA) Urine Ketones Urine Blood Urine Nitrite Urine Bilirubin Urine Urobilinogen Ur Leukocyte Esterase Urine WBC (Auto) Urine RBC (Auto) Urine Casts (Auto) U Epithel Cells (Auto) Urine Bacteria (Auto) POC Urine HCG, Qual Negative RPR Titer Hep C Ab Diagnostic HIV 1&2 Ag/Ab, 4th Gen 12/06/19 12/08/19 12/13/19 07:45 10:20 07:35 WBC RBC Hgb Hct MCV MCH MCHC RDW Plt Count MPV Sodium Potassium Chloride Carbon Dioxide Anion Gap BUN Creatinine Est GFR (CKD-EPI)AfAm Est GFR (CKD-EPI)NonAf Random Glucose Calcium Total Bilirubin AST ALT Alkaline Phosphatase Total Protein Albumin Urine Color Yellow Urine Appearance Cloudy Urine pH 7.5 D Ur Specific [place] 1.011 Urine Protein Negative Urine Glucose (UA) Negative Urine Ketones Negative Urine Blood Negative Urine Nitrite Negative Urine Bilirubin Negative Urine Urobilinogen 0.2 Ur Leukocyte Esterase Trace Urine WBC (Auto) 10 Urine RBC (Auto) 2 Urine Casts (Auto) 1 U Epithel Cells (Auto) 16.4 Urine Bacteria (Auto) 312.3 POC Urine HCG, Qual RPR Titer Nonreactive Hep C Ab Diagnostic <0.1 HIV 1&2 Ag/Ab, 4th Gen 12/13/19 07:35 WBC RBC Hgb Hct MCV MCH MCHC RDW Plt Count MPV Sodium Potassium Chloride Carbon Dioxide Anion Gap BUN Creatinine Est GFR (CKD-EPI)AfAm Est GFR (CKD-EPI)NonAf Random Glucose Calcium Total Bilirubin AST ALT Alkaline Phosphatase Total Protein Albumin Urine Color Urine Appearance Urine pH Ur Specific [place] Urine Protein Urine Glucose (UA) Urine Ketones Urine Blood Urine Nitrite Urine Bilirubin Urine Urobilinogen Ur Leukocyte Esterase Urine WBC (Auto) Urine RBC (Auto) Urine Casts (Auto) U Epithel Cells (Auto) Urine Bacteria (Auto) POC Urine HCG, Qual RPR Titer Hep C Ab Diagnostic HIV 1&2 Ag/Ab, 4th Gen Non reactive - Treatment Discharge Condition: Discharge condition good Hospital Course: Rehabilitated safely - Medication Discharge Medications: Ambulatory Orders Quetiapine Fumarate [Seroquel] 100 tab PO HS #30 tablet 04/01/16 Quetiapine Fumarate [Seroquel -] 50 mg PO DAILY 11/23/19 Amoxicillin - [Amoxicillin 500mg Capsule -] 500 mg PO TID #14 capsule 12/21/19 - Medication-Assisted Treatment (MAT) Medication-Assisted Treatment (MAT): No - Discharge Instructions Diet, activity, other medical instructions: Diet: Activity: Other medical instructions: - Diagnosis (1) Alcohol use disorder Current Visit: Yes Status: Chronic (2) Cocaine dependence Current Visit: Yes Status: Chronic Qualifiers: Substance use status: uncomplicated Qualified Code(s): F14.20 - Cocaine dependence, uncomplicated (3) Nicotine dependence Current Visit: Yes Status: Chronic Qualifiers: Nicotine product type: cigarettes Substance use status: uncomplicated Qualified Code(s): F17.210 - Nicotine dependence, cigarettes, uncomplicated (4) Weight decreased Current Visit: Yes Status: Acute (5) Anemia Current Visit: Yes Status: Resolved Qualifiers: Iron deficiency anemia type: unspecified iron deficiency Qualified Code(s) : D50.9 - Iron deficiency anemia, unspecified (6) Bronchitis Current Visit: Yes Status: Acute - AMA Did Patient Leave Against Medical Advice: No
[2019-12-21] MEDS: THIAMINE HCL 100 MG TABLET (FP) PO SCH (21:38)
[2019-12-21] MEDS: DOCUSATE SODIUM 100 MG CAPSULE (FP) PO PRN (21:38)
[2019-12-21] MEDS: QUEtiapine FUMARATE 100 MG TABLET (FP) PO SCH (21:38)
[2019-12-21] MEDS: CYCLOBENZAPRINE HCL 5 MG TABLET PO PRN (21:38)
[2019-12-22] MEDS: AMOXICILLIN 500 MG CAPSULE (FP) PO SCH ×3 (06:48→21:16)
[2019-12-22] MEDS: NICOTINE 21 MG/24 HOURS TOPICAL PATCH TD SCH (09:05)
[2019-12-22] MEDS: PRENATAL VITAMINS W/ FOLIC ACID TABLET (FP) PO SCH (09:05)
[2019-12-22] MEDS: MINERAL OIL/PETROLAT/WATER TOPICAL CREAM 113 GM JAR TP SCH (09:05)
[2019-12-22] MEDS: THIAMINE HCL 100 MG TABLET (FP) PO SCH (21:16)
[2019-12-22] MEDS: QUEtiapine FUMARATE 100 MG TABLET (FP) PO SCH (21:16)
[2019-12-22] MEDS: CYCLOBENZAPRINE HCL 5 MG TABLET PO PRN (21:18)
[2019-12-23] MEDS: AMOXICILLIN 500 MG CAPSULE (FP) PO SCH ×3 (06:42→21:09)
[2019-12-23] MEDS: NICOTINE 21 MG/24 HOURS TOPICAL PATCH TD SCH (10:01)
[2019-12-23] MEDS: MINERAL OIL/PETROLAT/WATER TOPICAL CREAM 113 GM JAR TP SCH (10:02)
[2019-12-23] MEDS: PRENATAL VITAMINS W/ FOLIC ACID TABLET (FP) PO SCH (10:02)
[2019-12-23] MEDS: QUEtiapine FUMARATE 100 MG TABLET (FP) PO SCH (21:09)
[2019-12-23] MEDS: THIAMINE HCL 100 MG TABLET (FP) PO SCH (21:09)
[2019-12-23] MEDS: DOCUSATE SODIUM 100 MG CAPSULE (FP) PO PRN (21:09)
[2019-12-24] MEDS: AMOXICILLIN 500 MG CAPSULE (FP) PO SCH ×3 (07:01→21:20)
[2019-12-24] MEDS ORDERED: PT OWN MED DRAWER 7, Y5N ONE ×2 (09:01→14:15)
[2019-12-24] MEDS: PRENATAL VITAMINS W/ FOLIC ACID TABLET (FP) PO SCH (09:59)
[2019-12-24] MEDS: NICOTINE 21 MG/24 HOURS TOPICAL PATCH TD SCH (10:00)
[2019-12-24] MEDS: MINERAL OIL/PETROLAT/WATER TOPICAL CREAM 113 GM JAR TP SCH (10:00)
[2019-12-24] MEDS: QUEtiapine FUMARATE 100 MG TABLET (FP) PO SCH (21:20)
[2019-12-24] MEDS: THIAMINE HCL 100 MG TABLET (FP) PO SCH (21:20)
[2019-12-25] MEDS: AMOXICILLIN 500 MG CAPSULE (FP) PO SCH (06:34)
[2019-12-25] MEDS: NICOTINE 21 MG/24 HOURS TOPICAL PATCH TD SCH (10:02)
[2019-12-25] MEDS: PRENATAL VITAMINS W/ FOLIC ACID TABLET (FP) PO SCH (10:03)
[2019-12-25] MEDS: MINERAL OIL/PETROLAT/WATER TOPICAL CREAM 113 GM JAR TP SCH (10:03)
[2019-12-25] MEDS: NICOTINE POLACRILEX 2 MG GUM BUC PRN (10:04)
[2019-12-25] MEDS ORDERED: COLLOIDAL OATMEAL 1 BAR EACH TP PRN (14:10)
[2019-12-25] MEDS: THIAMINE HCL 100 MG TABLET (FP) PO SCH (21:00)
[2019-12-25] MEDS: QUEtiapine FUMARATE 100 MG TABLET (FP) PO SCH (21:01)
[2019-12-26] MEDS: PRENATAL VITAMINS W/ FOLIC ACID TABLET (FP) PO SCH (10:16)
[2019-12-26] MEDS: NICOTINE 21 MG/24 HOURS TOPICAL PATCH TD SCH (10:16)
--- NOTE | 2019-12-26 10:16 | PN ---
S Progress Note (SOAP) Subjective: patient c/o itchy rash around her vagina and in the creases between her legs and perineum. States it started after using the soap from the dispenser and rubbing hard. Denies discharge, odor, pain. Objective: general: no apparent distress Skin: clear extremities: full weight bearing. Vital Signs Period Temp Pulse Resp BP Sys/Sesay Pulse Ox Last 24 Hr 97.9 F 84 16-16 138/90 12/26/19 10:14 Assessment: rash 12/26/19 10:15 Plan: ordered aveeno soap, nystatin cream.Hygiene discussed.
[2019-12-26] MEDS: MINERAL OIL/PETROLAT/WATER TOPICAL CREAM 113 GM JAR TP SCH (10:17)
[2019-12-26] MEDS ORDERED: PT OWN MED DRAWER 7, Y5N ONE ×2 (19:39→22:01)
[2019-12-26] MEDS: NYSTATIN 100,000 UNIT/GM TOPICAL CREAM 15 GM TUBE TP SCH (21:00)
[2019-12-26] MEDS: QUEtiapine FUMARATE 100 MG TABLET (FP) PO SCH (21:02)
[2019-12-26] MEDS: THIAMINE HCL 100 MG TABLET (FP) PO SCH (21:02)
[2019-12-27] MEDS: PRENATAL VITAMINS W/ FOLIC ACID TABLET (FP) PO SCH (09:58)
[2019-12-27] MEDS: NICOTINE 21 MG/24 HOURS TOPICAL PATCH TD SCH (09:58)
[2019-12-27] MEDS: NYSTATIN 100,000 UNIT/GM TOPICAL CREAM 15 GM TUBE TP SCH ×2 (09:59→21:31)
[2019-12-27] MEDS: MINERAL OIL/PETROLAT/WATER TOPICAL CREAM 113 GM JAR TP SCH (09:59)
[2019-12-27] MEDS: CYCLOBENZAPRINE HCL 5 MG TABLET PO PRN (16:55)
[2019-12-27] MEDS: NICOTINE POLACRILEX 2 MG GUM BUC PRN (16:56)
[2019-12-27] MEDS: THIAMINE HCL 100 MG TABLET (FP) PO SCH (21:31)
[2019-12-27] MEDS: QUEtiapine FUMARATE 100 MG TABLET (FP) PO SCH (21:31)
[2019-12-28] MEDS: PRENATAL VITAMINS W/ FOLIC ACID TABLET (FP) PO SCH (09:14)
[2019-12-28] MEDS: NICOTINE 21 MG/24 HOURS TOPICAL PATCH TD SCH (09:14)
[2019-12-28] MEDS: MINERAL OIL/PETROLAT/WATER TOPICAL CREAM 113 GM JAR TP SCH (09:15)
[2019-12-28] MEDS: NYSTATIN 100,000 UNIT/GM TOPICAL CREAM 15 GM TUBE TP SCH ×2 (09:15→21:07)
[2019-12-28] MEDS: CYCLOBENZAPRINE HCL 5 MG TABLET PO PRN (09:22)
[2019-12-28] MEDS ORDERED: PT OWN MED DRAWER 7, Y5N ONE (21:04)
[2019-12-28] MEDS: QUEtiapine FUMARATE 100 MG TABLET (FP) PO SCH (21:06)
[2019-12-28] MEDS: DOCUSATE SODIUM 100 MG CAPSULE (FP) PO PRN (21:06)
[2019-12-28] MEDS: THIAMINE HCL 100 MG TABLET (FP) PO SCH (21:06)
[2019-12-29] MEDS ORDERED: PT OWN MED DRAWER 7, Y5N ONE ×3 (08:35→20:43)
[2019-12-29] MEDS: NICOTINE 21 MG/24 HOURS TOPICAL PATCH TD SCH (09:14)
[2019-12-29] MEDS: NYSTATIN 100,000 UNIT/GM TOPICAL CREAM 15 GM TUBE TP SCH ×2 (09:15→21:06)
[2019-12-29] MEDS: MINERAL OIL/PETROLAT/WATER TOPICAL CREAM 113 GM JAR TP SCH (09:15)
[2019-12-29] MEDS: PRENATAL VITAMINS W/ FOLIC ACID TABLET (FP) PO SCH (09:15)
[2019-12-29] MEDS: QUEtiapine FUMARATE 100 MG TABLET (FP) PO SCH (21:06)
[2019-12-29] MEDS: CYCLOBENZAPRINE HCL 5 MG TABLET PO PRN (21:06)
[2019-12-29] MEDS: THIAMINE HCL 100 MG TABLET (FP) PO SCH (21:06)
[2019-12-30] MEDS: NICOTINE 21 MG/24 HOURS TOPICAL PATCH TD SCH (10:02)
[2019-12-30] MEDS: PRENATAL VITAMINS W/ FOLIC ACID TABLET (FP) PO SCH (10:02)
[2019-12-30] MEDS: NYSTATIN 100,000 UNIT/GM TOPICAL CREAM 15 GM TUBE TP SCH ×2 (10:03→22:03)
[2019-12-30] MEDS: MINERAL OIL/PETROLAT/WATER TOPICAL CREAM 113 GM JAR TP SCH (10:04)
[2019-12-30] MEDS: QUEtiapine FUMARATE 100 MG TABLET (FP) PO SCH (21:40)
[2019-12-30] MEDS: MELATONIN 5 MG TABLETS PO PRN (21:40)
[2019-12-30] MEDS: THIAMINE HCL 100 MG TABLET (FP) PO SCH (21:40)
[2019-12-31] MEDS: MINERAL OIL/PETROLAT/WATER TOPICAL CREAM 113 GM JAR TP SCH (09:09)
[2019-12-31] MEDS: NYSTATIN 100,000 UNIT/GM TOPICAL CREAM 15 GM TUBE TP SCH ×2 (09:10→21:07)
[2019-12-31] MEDS: NICOTINE 21 MG/24 HOURS TOPICAL PATCH TD SCH (09:10)
[2019-12-31] MEDS: PRENATAL VITAMINS W/ FOLIC ACID TABLET (FP) PO SCH (09:11)
[2019-12-31] MEDS: QUEtiapine FUMARATE 100 MG TABLET (FP) PO SCH (21:06)
[2019-12-31] MEDS: THIAMINE HCL 100 MG TABLET (FP) PO SCH (21:06)
[2020-01-01] MEDS: PRENATAL VITAMINS W/ FOLIC ACID TABLET (FP) PO SCH (10:12)
[2020-01-01] MEDS: MINERAL OIL/PETROLAT/WATER TOPICAL CREAM 113 GM JAR TP SCH (10:12)
[2020-01-01] MEDS: NICOTINE 21 MG/24 HOURS TOPICAL PATCH TD SCH (10:13)
[2020-01-01] MEDS: NYSTATIN 100,000 UNIT/GM TOPICAL CREAM 15 GM TUBE TP SCH ×2 (10:13→21:10)
[2020-01-01] MEDS: THIAMINE HCL 100 MG TABLET (FP) PO SCH (21:10)
[2020-01-01] MEDS: QUEtiapine FUMARATE 100 MG TABLET (FP) PO SCH (21:10)
[2020-01-02] MEDS: NICOTINE 21 MG/24 HOURS TOPICAL PATCH TD SCH (09:13)
[2020-01-02] MEDS: NYSTATIN 100,000 UNIT/GM TOPICAL CREAM 15 GM TUBE TP SCH ×2 (09:13→21:12)
[2020-01-02] MEDS: MINERAL OIL/PETROLAT/WATER TOPICAL CREAM 113 GM JAR TP SCH (09:13)
[2020-01-02] MEDS: PRENATAL VITAMINS W/ FOLIC ACID TABLET (FP) PO SCH (09:13)
[2020-01-02] MEDS: DOCUSATE SODIUM 100 MG CAPSULE (FP) PO PRN (21:11)
[2020-01-02] MEDS: THIAMINE HCL 100 MG TABLET (FP) PO SCH (21:11)
[2020-01-02] MEDS: QUEtiapine FUMARATE 100 MG TABLET (FP) PO SCH (21:11)
[2020-01-03 07:08] VITALS: BP 134/77; PULSE 66; TEMP 98
[2020-01-03] MEDS ORDERED: P-EPHED 60MG/TRIPROLIDI 2.5MG TABLET PO PRN (07:54)
[2020-01-03] MEDS ORDERED: PT OWN MED DRAWER 7, Y5N ONE (08:22)
[2020-01-03] MEDS: NICOTINE POLACRILEX 2 MG GUM BUC PRN (09:38)
[2020-01-03] MEDS: NICOTINE 21 MG/24 HOURS TOPICAL PATCH TD SCH (09:38)
[2020-01-03] MEDS: PRENATAL VITAMINS W/ FOLIC ACID TABLET (FP) PO SCH (09:38)
[2020-01-03] MEDS: NYSTATIN 100,000 UNIT/GM TOPICAL CREAM 15 GM TUBE TP SCH ×2 (09:38→21:11)
[2020-01-03] MEDS: MINERAL OIL/PETROLAT/WATER TOPICAL CREAM 113 GM JAR TP SCH (09:38)
--- NOTE | 2020-01-03 09:45 | DS ---
[facility] Rehab Discharge Summary - [facility] Rehab Discharge Summary Admission Date: 12/05/19 Discharge Date: 01/03/20 - History Present History: Alcohol dependence, Cocaine dependence Pertinent Past History: Subjective: Patient to be discharged tomorrow. PMHx: 53 yo presents w/ alcohol use disorder; transferred from detox to rehab on 12/08/2019 Denies seizures, blackouts, overdoses. Alcohol use began at age 18. Currently drinks 1/5 th vodka daily x 1 year. Crack/cocaine began at age 29. Currently uses $2-300/day. Smokes x 1 yr. Nicotine use began at age 15. Smokes 1.5 PPD x over 1 yr. Denies other substance use. MHHx: Anxiety. Bipolar. Denies depression. Last saw a MH provider in the community. On seroquel. Denies thoughts of harming self or others. SHx: Homeless. Unemployed. Denies legal issues. 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 medically stable for discharge.) Hospital Course: Patient attended groups, had 1:1 with her counselor, and was seen by psychiatric service. She had one incident of vomiting that was resolved, and c/o cough with green sputum treated with amoxicillin. She also had a perineum rash treated with nystatin cream that also resolved. - Medication Discharge Medications: Ambulatory Orders Quetiapine Fumarate [Seroquel] 100 tab PO HS #30 tablet 04/01/16 Quetiapine Fumarate [Seroquel -] 50 mg PO DAILY 11/23/19 Amoxicillin - [Amoxicillin 500mg Capsule -] 500 mg PO TID #14 capsule 12/21/19 - Medication-Assisted Treatment (MAT) Medication-Assisted Treatment (MAT): No - Discharge Instructions Diet, activity, other medical instructions: Diet: as tolerated Activity: as tolerated Other medical instructions: Please follow up with discharge referral. - Diagnosis (1) Alcohol dependence with uncomplicated withdrawal Current Visit: Yes Status: Chronic (2) Cocaine dependence Current Visit: Yes Status: Chronic Qualifiers: Substance use status: uncomplicated Qualified Code(s): F14.20 - Cocaine dependence, uncomplicated - Follow-up Referral Minutes to complete discharge: 20 - AMA Did Patient Leave Against Medical Advice: No
--- NOTE | 2020-01-03 10:24 | PN ---
[facility] Progress Note Note: Patient is scheduled for discharge tomorrow. Script for 30 days supply of Seroquel 100 mg/hs will be electronically transmitted to [facility] at [address] [place], [place] [id number]
[2020-01-03] MEDS: QUEtiapine FUMARATE 100 MG TABLET (FP) PO SCH (21:10)
[2020-01-03] MEDS: THIAMINE HCL 100 MG TABLET (FP) PO SCH (21:10)
[2020-01-04] MEDS ORDERED: PT OWN MED DRAWER 7, Y5N ONE ×2 (07:58→08:53)
[2020-01-04] MEDS: PRENATAL VITAMINS W/ FOLIC ACID TABLET (FP) PO SCH (09:06)
[2020-01-04] MEDS: MINERAL OIL/PETROLAT/WATER TOPICAL CREAM 113 GM JAR TP SCH (09:07)
[2020-01-04] MEDS: NICOTINE 21 MG/24 HOURS TOPICAL PATCH TD SCH (09:07)
[2020-01-04] MEDS: NYSTATIN 100,000 UNIT/GM TOPICAL CREAM 15 GM TUBE TP SCH (09:07)
== END 2020-01-04 09:15 | disposition home or self-care (01) | DRG 895 ==
LOC: YASAS 14:00 → Y6N 18:44 → Y3E 12-08 18:48
PROVIDERS: ADMIT Allergy & Immunology; ATTEND Allergy & Immunology
PROC: HZ2ZZZZ Detoxification Services for Substance Abuse Treatment (ICD-10-PCS; 2019-12-05)
PROC: HZ42ZZZ Group Counseling for Substance Abuse Treatment, Cognitive-Behavioral (ICD-10-PCS; principal; 2019-12-08)
DX: F10.20 Alcohol dependence, uncomplicated (principal); F14.20 Cocaine dependence, uncomplicated; F19.282 Other psychoactive substance dependence with psychoactive substance-induced sleep disorder; F17.210 Nicotine dependence, cigarettes, uncomplicated; F19.24 Other psychoactive substance dependence with psychoactive substance-induced mood disorder; F31.9 Bipolar disorder, unspecified; F41.9 Anxiety disorder, unspecified; F43.10 Post-traumatic stress disorder, unspecified; J20.9 Acute bronchitis, unspecified; R21 Rash and other nonspecific skin eruption; R07.81 Pleurodynia; Z86.2 Personal history of diseases of the blood and blood-forming organs and certain disorders involving the immune mechanism; Z56.0 Unemployment, unspecified; Z59.0 Homelessness
CPT/HCPCS: 36415; 71046-TC-FY; 80053; 81003; 81025; 85027; 86593; 86803; 87389; 93005; 93010

== ENCOUNTER 2020-07-04 18:55 | Inpatient (IN) | payer OTHER ==
[2020-07-04 19:29] VITALS: BMI 14.8
--- NOTE | 2020-07-04 23:36 | HP ---
CIWA Score Nausea/Vomitin Muscle Tremors: 3 Anxiety: 3 Agitation: 2 Paroxysmal Sweats: 2 Orientation: 1-Uncertain about Date Tacttile Disturbances: 0-None Auditory Disturbances: 0-None Visual Disturbances: 0-None Headache: 0-None Present CIWA-Ar Total Score: 13 - Admission Criteria OASAS Guidelines: Admission for Medically Managed Detox: Requires at least one of the followin. CIWA greater than 12 2. Seizures within the past 24 hours 3. Delirium tremens within the past 24 hours 4. Hallucinations within the past 24 hours 5. Acute intervention needed for co occurring medical disorder 6. Acute intervention needed for co occurring psychiatric disorder 7. Severe withdrawal that cannot be handled at a lower level of care (continued vomiting, continued diarrhea, abnormal vital signs) requiring intravenous medication and/or fluids 8. Admitting History and Physical - Past Medical History ...LMP: 10/29/19 - Smoking History Smoking history: Current every day smoker Have you smoked in the past 12 months: Yes Aproximately how many cigarettes per day: 30 - Alcohol/Substance Use Hx Alcohol Use: Yes Admission [facility] Chief Complaint: Seeking admission to detox from alcohol Allergies/Adverse Reactions: Allergies Allergy/AdvReac Type Severity Reaction Status Date / Time No Known Allergies Allergy Verified 07/05/20 01:24 History of Present Illness: 54 years old female with a long history of alcohol dependence is seeking admission to detox. Her last admission was for the period 12/05/2019 - 0 01/04/2020 and she reports that she relapsed a week post discharge. She drinks 3 pints of Vodka and 4 x 24oz. beer. She has medical history of Constipation, anemia, psych. history of anxiety, PTSD, depression and denies suicidal ideation at this time. She is unemployed, lives with her sister in [place] and denies legal issues. 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 Exam Limitations: No Limitations - Ebola screening Have you traveled outside of the country in the last 21 days: No Have you had contact with anyone from an Ebola affected area: No Have you been sick,other than usual withdrawal symptoms: No - Review of Systems Constitutional: Chills, Loss of Appetite, Malaise, Night Sweats, Changes in sleep EENT: reports: Sinus Pressure Respiratory: reports: No Symptoms reported Cardiac: reports: No Symptoms Reported GI: reports: Constipated, Nausea, Poor Appetite, Poor Fluid Intake, Abdominal cramping : reports: No Symptoms Reported Musculoskeletal: reports: No Symptoms Reported Integumentary: reports: Dryness, Flushing Neuro: reports: Tremors Hematology: reports: No Symptoms Reported Psychiatric: reports: Anxious, Depressed Other Systems: Reviewed and Negative Patient History - Patient Medical History Hx Anemia: Yes Hx Asthma: No Hx Chronic Obstructive Pulmonary Disease (COPD): No Hx Cancer: No Hx Cardiac Disorders: No Hx Congestive Heart Failure: No Hx Hypertension: No Hx Hypercholesterolemia: No Hx Pacemaker: No HX Cerebrovascular Accident: No Hx Seizures: No Hx Dementia: No Hx Diabetes: No Hx Gastrointestinal Disorders: No Hx Liver Disease: No Hx Genitourinary Disorders: No Hx Sexually Transmitted Disorders: No Hx Renal Disease (ESRD): No Hx Thyroid Disease: No Hx Human Immunodeficiency Virus (HIV): No (negative) Hx Hepatitis C: No Hx Depression: Yes Hx Suicide Attempt: No Hx Bipolar Disorder: Yes (AND ANXIETY DISORDER) Hx Schizophrenia: No - Patient Surgical History Past Surgical History: Yes Hx Neurologic Surgery: No Hx Cataract Extraction: No Hx Cardiac Surgery: No Hx Lung Surgery: No Hx Breast Surgery: No Hx Breast Biopsy: No Hx Abdominal Surgery: No Hx Appendectomy: Yes (AT AGE OF 12 YEAERS) Hx Cholecystectomy: No Hx Genitourinary Surgery: No Hx Section: No Hx Orthopedic Surgery: No Other Surgical History: D &C X2 Anesthesia Reaction: No - PPD History Date: 12/07/19 Results: 0 MM - Reproductive History Last Menstrual Period: 10/29/19 - Smoking Cessation Smoking history: Current every day smoker Have you smoked in the past 12 months: Yes Aproximately how many cigarettes per day: 30 Cigars Per Day: 0 Hx Chewing Tobacco Use: No Initiated information on smoking cessation: Yes 'Breaking Loose' booklet given: 07/05/20 - Substances abused Alcohol Substance route: Oral Frequency: Daily Amount used: 3 pints of Vodka and 4 x 24oz. beer. Age of first use: 19 Date of last use: 07/04/20 Admission Physical Exam [facility] - Vital Signs Vital Signs: Vital Signs - 24 hr 07/04/20 19:28 Temperature 97.7 F Pulse Rate 87 Respiratory 19 Rate Blood Pressure 145/87 - Physical General Appearance: Yes: Moderate Distress, Anxious HEENTM: Yes: Within Normal Limits Respiratory: Yes: Lungs Clear, Normal Breath Sounds, No Respiratory Distress Neck: Yes: Within Normal Limits Breast: Yes: Breast Exam Deferred Cardiology: Yes: Within Normal Limits Abdominal: Yes: Normal Bowel Sounds Genitourinary: Yes: Within Normal Limits Back: Yes: Normal Inspection Extremities: Yes: Tremors Neurological: Yes: Within Normal Limits Integumentary: Yes: Warm Lymphatic: Yes: Within Normal Limits - Diagnostic (1) Bipolar 1 disorder Current Visit: Yes Status: Chronic (2) Cocaine dependence Current Visit: Yes Status: Chronic (3) Alcohol dependence with uncomplicated withdrawal Current Visit: Yes Status: Acute (4) Crack cocaine use Current Visit: Yes Status: Chronic (5) Nicotine dependence Current Visit: Yes Status: Chronic Qualifiers: Nicotine product type: cigarettes Substance use status: uncomplicated Qualified Code(s): F17.210 - Nicotine dependence, cigarettes, uncomplicated (6) PTSD (post-traumatic stress disorder) Current Visit: Yes Status: Chronic (7) Anemia Current Visit: Yes Status: Chronic Qualifiers: Iron deficiency anemia type: unspecified iron deficiency Qualified Code(s): D50.9 - Iron deficiency anemia, unspecified (8) Constipation Current Visit: Yes Status: Chronic Qualifiers: Constipation type: unspecified constipation type Qualified Code(s): K59.00 - Constipation, unspecified Cleared for Admission [facility] - Detox or Rehab [facility] Level of Care: Medically Managed Detox Regimen/Protocol: Ativan Claeared for Rehab Admission: No Breathalyzer - Breathalyzer Breathalyzer: 0.008 Urine Drug Screen - Test Device Lot number: [id number] Expiration date: 05/28/22 - Control Is test valid?: Yes - Results Drug screen NEGATIVE: No Urine drug screen results: WAYLON-Cocaine Inpatient Rehab Admission - Rehab Decision to Admit Inpatient rehab admission?: No
[2020-07-04] MEDS ORDERED: ACETAMINOPHEN 325 MG TABLET (FP) PO PRN ×2 (23:48)
[2020-07-04] MEDS ORDERED: MAGNESIUM CITRATE 300 ML BOTTLE PO PRN (23:48)
[2020-07-04] MEDS ORDERED: MAG HYDROX/AL HYDROX/SIMETH 30 ML UNIT-DOSE CUP PO PRN (23:48)
[2020-07-04] MEDS ORDERED: MAGNESIUM HYDROX 2400MG/30ML ORAL SUSPENSION 30 ML CUP PO PRN (23:48)
[2020-07-04] MEDS ORDERED: MENTHOL/PHENOL 1 EACH UD MM PRN (23:48)
[2020-07-04] MEDS ORDERED: ONDANSETRON *ODT* 4 MG TABLET SL PRN (23:48)
[2020-07-04] MEDS ORDERED: METHOCARBAMOL 500 MG TABLET PO PRN (23:48)
[2020-07-04] MEDS ORDERED: NICOTINE POLACRILEX 2 MG GUM BUC PRN (23:48)
[2020-07-04] MEDS ORDERED: BISMUTH SUBSALICYLATE 524 MG/30 ML UD PO PRN (23:48)
[2020-07-04] MEDS ORDERED: LORazepam 1 MG TABLET PO PRN (23:58)
[2020-07-05] MEDS: LORazepam 2 MG TABLET PO SCH ×4 (05:28→22:30)
--- NOTE | 2020-07-05 09:01 | EKG ---
Test Reason : Blood Pressure : / mmHG Vent. Rate : 075 BPM Atrial Rate : 075 BPM P-R Int : 142 ms QRS Dur : 098 ms QT Int : 368 ms P-R-T Axes : 054 039 045 degrees QTc Int : 410 ms NORMAL SINUS RHYTHM NORMAL ECG WHEN COMPARED WITH ECG OF 05-DEC-2019 19:09, NO SIGNIFICANT CHANGE WAS FOUND Confirmed by NARCISO MARS MD ([id number]) on 07/05/2020 9:01:05 AM Referred By: Confirmed By:NARCISO MARS MD
--- NOTE | 2020-07-05 09:16 | PN ---
S CIWA - CIWA Score Nausea/Vomitin Muscle Tremors: None Anxiety: 2 Agitation: 0-Normal Activity Paroxysmal Sweats: 1-Minimal Palms Moist Orientation: 0-Oriented Tacttile Disturbances: 0-None Auditory Disturbances: 0-None Visual Disturbances: 0-None Headache: 0-None Present CIWA-Ar Total Score: 6 BHS Progress Note (SOAP) Subjective: Patient evaluated this morning, notes she has been feeling nauseous and requests more medication. Patient on ativan detox. Objective: 07/05/20 09:15 Vital Signs Temperature 97.7 F 07/05/20 05:25 Pulse Rate 68 07/05/20 05:25 Respiratory Rate 20 07/05/20 05:25 Blood Pressure 118/80 07/05/20 05:25 O2 Sat by Pulse Oximetry (%) 99 07/05/20 05:25 Physical Exam general: WNNL, patient sleepy, alert Neuro: ROM intact skin: intact dry Active Medications Acetaminophen (Tylenol -) 650 mg PO Q6H PRN PRN Reason: PAIN LEVEL 4 - 6 Acetaminophen (Tylenol -) 650 mg PO Q6H PRN PRN Reason: FEVER Al Hydroxide/Mg Hydroxide (Mylanta Oral Suspension -) 30 ml PO Q6H PRN PRN Reason: DYSPEPSIA Bismuth Subsalicylate (Pepto-Bismol -) 524 mg PO Q1H PRN PRN Reason: DIARRHEA Eucalyptus/Menthol/Phenol/Sorbitol (Cepastat Lozenge -) 1 each MM Q4H PRN PRN Reason: SORE THROAT Stop: 07/10/20 23:49 Ibuprofen (Motrin -) 400 mg PO Q6H PRN PRN Reason: PAIN LEVEL 1 - 3 Lorazepam (Ativan -) 1 mg PO 0500,1100,1700,2300 [facility] Stop: 07/06/20 23:01 Lorazepam (Ativan -) 1 mg PO Q4H PRN PRN Reason: Symptoms of Withdrawal Stop: 07/06/20 00:00 Last Admin: 07/05/20 01:09 Dose: 1 mg Documented by: Lorazepam (Ativan) 2 mg PO 0500,1100,1700,2300 [facility] Stop: 07/05/20 23:01 Last Admin: 07/05/20 05:28 Dose: 2 mg Documented by: Lorazepam (Ativan -) 0.5 mg PO Q6H [facility] Stop: 07/07/20 23:01 Lorazepam (Ativan -) 0.5 mg PO Q4H PRN PRN Reason: Symptoms of Withdrawal Stop: 07/07/20 00:00 Lorazepam (Ativan -) 0.5 mg PO ONCE ONE Stop: 07/08/20 05:01 Magnesium Citrate (Citroma -) 300 ml PO Q48H PRN PRN Reason: CONSTIPATION Magnesium Hydroxide (Milk Of Magnesia -) 30 ml PO PRN PRN PRN Reason: CONSTIPATION Melatonin (Melatonin) 5 mg PO HS [facility] Methocarbamol (Robaxin -) 500 mg PO Q6H PRN PRN Reason: MUSCLE SPASMS Stop: 07/10/20 23:49 Nicotine (Nicoderm Patch -) 14 mg TD DAILY [facility] Nicotine Polacrilex (Nicorette Gum -) 2 mg BUC Q2H PRN PRN Reason: NICOTINE REPLACEMENT RX Ondansetron HCl (Zofran Odt -) 4 mg SL Q8H PRN PRN Reason: Nausea/Vomiting Multivit/Folic Acid/Iron ( Vitamins (Sjr) -) 1 tab PO DAILY [facility] Thiamine HCl (Vitamin B1 -) 100 mg PO [facility] 07/05/20 09:18 Assessment: 07/05/20 09:16 1. Alcohol dependence with withdrawl 2. Anxiety Plan: 1. Continue Ativan detox for alcohol withdrawl 2. f/u Psych consult for anxiety
[2020-07-05 10:42] LABS: HEMATOCRIT 36.6 % (32.4-45.2); HEMOGLOBIN 12.3 GM/dL (10.7-15.3); MCH 31.6 pg (25.7-33.7); MCHC 33.6 g/dl (32.0-36.0); MEAN CELL VOLUME 94.2 fl (80-96); MEAN PLT VOLUME 8.7 fl (7.5-11.1); PLATELET COUNT 267 K/MM3 (134-434); RBC 3.89 M/mm3 (3.60-5.2); RDW 13.3 % (11.6-15.6); WHITE BLOOD COUNT 5.8 K/mm3 (4.0-10.0)
[2020-07-05 10:55] LABS: BILIRUBIN,TOTAL 0.3 mg/dL (0.2-1); BLOOD UREA NITROGEN 9.3 mg/dL (7-18); CREATININE 0.6 mg/dL (0.55-1.3); TOT PROT 5.9 g/dl (6.4-8.2)
[2020-07-05] MEDS: PRENATAL VITAMINS W/ FOLIC ACID TABLET (FP) PO SCH (11:00)
[2020-07-05] MEDS: NICOTINE 14 MG/24 HOURS TOPICAL PATCH TD SCH (11:00)
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
[2020-07-05] MEDS ORDERED: QUEtiapine FUMARATE 100 MG TABLET (FP) PO SCH (22:00)
[2020-07-05] MEDS: THIAMINE HCL 100 MG TABLET (FP) PO SCH (22:30)
[2020-07-05] MEDS: MELATONIN 5 MG TABLETS PO SCH (22:31)
[2020-07-06] MEDS ORDERED: LORazepam 0.5 MG TABLET PO PRN
[2020-07-06] MEDS: LORazepam 1 MG TABLET PO SCH ×4 (07:31→22:58)
[2020-07-06] MEDS: PRENATAL VITAMINS W/ FOLIC ACID TABLET (FP) PO SCH (11:12)
[2020-07-06] MEDS: NICOTINE 14 MG/24 HOURS TOPICAL PATCH TD SCH (11:20)
--- NOTE | 2020-07-06 13:19 | PN ---
S CIWA - CIWA Score Nausea/Vomitin-No Nausea/No Vomiting Muscle Tremors: None Anxiety: 2 Agitation: 0-Normal Activity Paroxysmal Sweats: 2 Orientation: 0-Oriented Tacttile Disturbances: 0-None Auditory Disturbances: 0-None Visual Disturbances: 0-None Headache: 2-Mild CIWA-Ar Total Score: 6 BHS Progress Note (SOAP) Subjective: c/o anxiety, sweats, and headache. Objective: 07/06/20 13:18 Vital Signs 07/06/20 06:20 O2 Sat by Pulse 99 Oximetry (%) Laboratory Last Values WBC 5.8 K/mm3 (4.0-10.0) 07/05/20 08:10 RBC 3.89 M/mm3 (3.60-5.2) 07/05/20 08:10 Hgb 12.3 GM/dL (10.7-15.3) 07/05/20 08:10 Hct 36.6 % (32.4-45.2) 07/05/20 08:10 MCV 94.2 fl (80-96) 07/05/20 08:10 MCH 31.6 pg (25.7-33.7) 07/05/20 08:10 MCHC 33.6 g/dl (32.0-36.0) 07/05/20 08:10 RDW 13.3 % (11.6-15.6) 07/05/20 08:10 Plt Count 267 K/MM3 (134-434) D 07/05/20 08:10 MPV 8.7 fl (7.5-11.1) 07/05/20 08:10 Sodium 143 mmol/L (136-145) 07/05/20 08:10 Potassium 3.0 mmol/L (3.5-5.1) L 07/05/20 08:10 Chloride 110 mmol/L (98-107) H 07/05/20 08:10 Carbon Dioxide 28 mmol/L (21-32) 07/05/20 08:10 Anion Gap 5 MMOL/L (8-16) L 07/05/20 08:10 BUN 9.3 mg/dL (7-18) 07/05/20 08:10 Creatinine 0.6 mg/dL (0.55-1.3) 07/05/20 08:10 Est GFR (CKD-EPI)AfAm 121.46 07/05/20 08:10 Est GFR (CKD-EPI)NonAf 104.80 07/05/20 08:10 Random Glucose 88 mg/dL (74-106) 07/05/20 08:10 Calcium 9.0 mg/dL (8.5-10.1) 07/05/20 08:10 Total Bilirubin 0.3 mg/dL (0.2-1) 07/05/20 08:10 AST 15 U/L (15-37) 07/05/20 08:10 ALT 21 U/L (13-61) 07/05/20 08:10 Alkaline Phosphatase 67 U/L (45-117) 07/05/20 08:10 Total Protein 5.9 g/dl (6.4-8.2) L 07/05/20 08:10 Albumin 3.0 g/dl (3.4-5.0) L 07/05/20 08:10 POC Urine HCG, Qual Negative 07/04/20 18:50 Syphilis Serology Non-reactive (NONREACTIVE) 07/05/20 08:10 COVID-19 (MARC) Not detected (Not Detected) 07/05/20 11:35 Labs noted with low K+ level. Assessment: 07/06/20 13:19 AOX3, in no acute respiratory distress. Full ROM, ambulating in the unit. Withdrawal symptoms. Hypokalemia. Plan: continue detox. Give potassium chloride 40meq po x1dose. Repeat K+ level in AM.
[2020-07-06] MEDS ORDERED: POTASSIUM CHLORIDE TABS 20 MEQ TABLET.ER (FP) PO ONE ×3 (13:21→23:45)
--- NOTE | 2020-07-06 21:47 | PN ---
S Progress Note Note: Psychiatry Attending's note (delayed) : Seroquel 100 mg po hs : discontinued. Reason : oversedation in the morning. Patient was seen at bedside during daytime. Ms Galicia appeared sedated (moderately). Seroquel held until further orders.
[2020-07-06] MEDS: MELATONIN 5 MG TABLETS PO SCH (22:58)
[2020-07-06] MEDS: THIAMINE HCL 100 MG TABLET (FP) PO SCH (22:58)
[2020-07-07] MEDS: LORazepam 0.5 MG TABLET PO SCH ×4 (06:17→22:46)
[2020-07-07] MEDS: PRENATAL VITAMINS W/ FOLIC ACID TABLET (FP) PO SCH (10:29)
[2020-07-07] MEDS: NICOTINE 14 MG/24 HOURS TOPICAL PATCH TD SCH (10:30)
[2020-07-07] MEDS ORDERED: ACETAMINOPHEN 325 MG TABLET (FP) PO ONE (10:31)
--- NOTE | 2020-07-07 10:31 | PN ---
S CIWA - CIWA Score Nausea/Vomitin-No Nausea/No Vomiting Muscle Tremors: 1-None Visible, but [place] Anxiety: 1-Mildly Anxious Agitation: 0-Normal Activity Paroxysmal Sweats: No Perspiration Orientation: 0-Oriented Tacttile Disturbances: 0-None Auditory Disturbances: 0-None Visual Disturbances: 1-Very Mild Sensitivity Headache: 1-Very Mild CIWA-Ar Total Score: 4 BHS Progress Note (SOAP) Subjective: 54 years old female was admitted on 07/04/20 for alcohol withdrawal sx management treating with ativan detox regiment feels better today less tremor mild anxiety 4/10 headache tylenal 650mg po x 1 loose stool after breakfast imodium 4 mg po x 1 Objective: 07/07/20 10:34 Vital Signs - 24 hr 07/06/20 07/06/20 07/06/20 12:40 17:03 21:01 Temperature 98.1 F 97.5 F L 98.1 F Pulse Rate 66 77 84 Respiratory 18 18 18 Rate Blood Pressure 110/60 118/67 112/61 O2 Sat by Pulse 100 99 Oximetry (%) 07/07/20 07/07/20 06:10 09:00 Temperature 97.3 F L 98.0 F Pulse Rate 76 90 Respiratory 18 18 Rate Blood Pressure 110/58 L 110/61 O2 Sat by Pulse 100 Oximetry (%) Laboratory Tests 07/04/20 07/05/20 07/05/20 18:50 08:10 08:10 WBC 5.8 RBC 3.89 Hgb 12.3 Hct 36.6 MCV 94.2 MCH 31.6 MCHC 33.6 RDW 13.3 Plt Count 267 D MPV 8.7 Sodium Potassium Chloride Carbon Dioxide Anion Gap BUN Creatinine Est GFR (CKD-EPI)AfAm Est GFR (CKD-EPI)NonAf Random Glucose Calcium Total Bilirubin AST ALT Alkaline Phosphatase Total Protein Albumin POC Urine HCG, Qual Negative Syphilis Serology Non-reactive COVID-19 (M[facility]) 07/05/20 07/05/20 08:10 11:35 WBC RBC Hgb Hct MCV MCH MCHC RDW Plt Count MPV Sodium 143 Potassium 3.0 L Chloride 110 H Carbon Dioxide 28 Anion Gap 5 L BUN 9.3 Creatinine 0.6 Est GFR (CKD-EPI)AfAm 121.46 Est GFR (CKD-EPI)NonAf 104.80 Random Glucose 88 Calcium 9.0 Total Bilirubin 0.3 AST 15 ALT 21 Alkaline Phosphatase 67 Total Protein 5.9 L Albumin 3.0 L POC Urine HCG, Qual Syphilis Serology COVID-19 (MARC) Not detected lab noted Assessment: 07/07/20 10:36 alcohol withdrawal Plan: ativan regiment
[2020-07-07] MEDS ORDERED: LOPERAMIDE HCL 2 MG CAPSULE PO ONE (10:33)
[2020-07-07] MEDS ORDERED: MELATONIN 5 MG TABLETS PO ONE (21:19)
[2020-07-07] MEDS: THIAMINE HCL 100 MG TABLET (FP) PO SCH (22:46)
[2020-07-07] MEDS: MELATONIN 5 MG TABLETS PO SCH (22:46)
[2020-07-08] MEDS ORDERED: LORazepam 0.5 MG TABLET PO ONE (05:00)
--- NOTE | 2020-07-08 08:06 | PN ---
[facility] Progress Note Note: I was informed at 2.30AM, 4 hours post incident that patient was observed exchanging unknown substance with another patient, B. R. (room 360A). Patient was evaluated in her room. She is alert and oriented x 3, in no acute distress and no change in mental status noted. Action: Monitor patientVital Signs - 24 hr 07/07/20 07/07/20 07/07/20 09:00 12:36 16:51 Temperature 98.0 F 97.3 F L 97.7 F Pulse Rate 90 67 90 Respiratory 18 18 19 Rate Blood Pressure 110/61 126/49 L 134/74 O2 Sat by Pulse 98 Oximetry (%) 07/07/20 07/08/20 20:48 05:26 Temperature 98.2 F 97.0 F L Pulse Rate 87 87 Respiratory 19 19 Rate Blood Pressure 121/57 L 121/57 L O2 Sat by Pulse 97 97 Oximetry (%) Action: Monitor patient
--- NOTE | 2020-07-08 10:14 | HP ---
[facility] Rehab Assess/Revision - Admission History Admitted to Rehab from: [facility] Date of Admission to Rehab: 07/08/20 - Vital signs Vital Signs: Vital Signs Period Temp Pulse Resp BP Sys/Sesay Pulse Ox Last 24 Hr 97.0 F-98.2 F 67-92 18-19 110-134/49-74 97-98 - Findings Detox History & Physical reviewed: Yes Concur with findings: Yes Comments/Additional Findings: transferred from detox to rehab admission as per protocol Inpatient Rehab Admission - Rehab Decision to Admit Inpatient rehab admission?: Yes - Initial Determination Are CD services needed?: Yes Free of communicable disease: Yes Not in need of hospitalization: Yes - Rehab Admission Criteria Previous failed treatment: Yes Poor recovery environment: Yes Comorbidities: Yes Lacks judgement: Yes Patient is meeting Inpatient Rehab admission criteria:: Yes
[2020-07-08] MEDS: PRENATAL VITAMINS W/ FOLIC ACID TABLET (FP) PO SCH (10:31)
[2020-07-08] MEDS: NICOTINE 14 MG/24 HOURS TOPICAL PATCH TD SCH (10:31)
--- NOTE | 2020-07-08 17:34 | PN ---
[facility] Progress Note Note: Psychiatry Attending's note (follow-up) : Patient approached contract technical writer to discuss medications. Ms Galicia is upset because seroquel has been held. Reason : patient was observed as sedated in previous days. She is noted toady as ambulatory. Gait is steady. Cognitively intact. Patient insists on resuming seroquel at bedytime (refractory insomnia). She is angry, loud, verbally abusive toward contract technical writer and disruptive. Hostile. Calmed down when re-informed of reasons behind discontinuation of the drug. Seroquel is re-instated at the dose of 100 mg po hs (with patient's informed consent). Close observation for inappropriate/risky behavior (diversion of medication). Falls precautions.
[2020-07-08] MEDS: THIAMINE HCL 100 MG TABLET (FP) PO SCH (21:04)
[2020-07-08] MEDS: MELATONIN 5 MG TABLETS PO SCH (21:05)
[2020-07-08] MEDS ORDERED: QUEtiapine FUMARATE 100 MG TABLET (FP) PO SCH (22:00)
[2020-07-09] MEDS: NICOTINE 14 MG/24 HOURS TOPICAL PATCH TD SCH (10:32)
[2020-07-09] MEDS: PRENATAL VITAMINS W/ FOLIC ACID TABLET (FP) PO SCH (10:32)
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
[2020-07-09] MEDS: THIAMINE HCL 100 MG TABLET (FP) PO SCH (21:54)
[2020-07-09] MEDS: QUEtiapine FUMARATE 50 MG TABLET PO SCH (21:54)
[2020-07-09] MEDS: MELATONIN 5 MG TABLETS PO SCH (21:55)
[2020-07-10] MEDS: PRENATAL VITAMINS W/ FOLIC ACID TABLET (FP) PO SCH (10:41)
[2020-07-10] MEDS: NICOTINE 14 MG/24 HOURS TOPICAL PATCH TD SCH (10:41)
[2020-07-10] MEDS: THIAMINE HCL 100 MG TABLET (FP) PO SCH (21:10)
[2020-07-10] MEDS: QUEtiapine FUMARATE 50 MG TABLET PO SCH (21:10)
[2020-07-10] MEDS: MELATONIN 5 MG TABLETS PO SCH (21:10)
[2020-07-11] MEDS: PRENATAL VITAMINS W/ FOLIC ACID TABLET (FP) PO SCH (10:19)
[2020-07-11] MEDS: NICOTINE 14 MG/24 HOURS TOPICAL PATCH TD SCH (10:19)
--- NOTE | 2020-07-11 10:40 | PN ---
[facility] Progress Note (SOAP) Subjective: Pt c/o right ear pain and itch. Reports right lower molar pain and feels small lump on neck. Objective: 07/11/20 10:36 Vital Signs - 24 hr 07/10/20 07/10/20 14:37 20:38 O2 Sat by Pulse 97 97 Oximetry (%) Vital Signs (72 hours) 07/08/20 07/08/20 07/09/20 16:23 20:30 01:36 Temperature 97.5 F L 98.6 F Pulse Rate 81 88 Respiratory 18 18 Rate Blood Pressure 119/53 L 126/63 O2 Sat by Pulse 100 98 Oximetry (%) 07/09/20 07/09/20 07/10/20 07:35 21:24 06:45 Temperature 97.3 F L 97.5 F L Pulse Rate 82 89 Respiratory 16 20 Rate Blood Pressure 93/57 L 102/69 O2 Sat by Pulse 100 100 100 Oximetry (%) 07/10/20 07/10/20 14:37 20:38 Temperature Pulse Rate Respiratory Rate Blood Pressure O2 Sat by Pulse 97 97 Oximetry (%) Alert o x 3 nad oob ambulating with steady gait Head:Normocephalic, Atruamatic, TM intact, no redness or swelling, cerumen on outer ear canal Oral:right lower jaw pain on palpation,very small movable cervical nodule on side of neck. slight redness to last right molar gum area. Teeth in poor repair. Assessment: 07/11/20 10:39 Tooth ache/Gingivitis Poor oral hygiene Plan: Amoxicillin 500 mg po TID x 7 days Rinse mouth after each meal Lidocaine viscous swish prn as directed Debrox ear drops if needed.
[2020-07-11] MEDS: AMOXICILLIN 500 MG CAPSULE (FP) PO SCH ×2 (13:11→21:04)
[2020-07-11] MEDS: QUEtiapine FUMARATE 50 MG TABLET PO SCH (21:04)
[2020-07-11] MEDS: THIAMINE HCL 100 MG TABLET (FP) PO SCH (21:04)
[2020-07-11] MEDS: MELATONIN 5 MG TABLETS PO SCH (21:05)
[2020-07-12] MEDS ORDERED: PT OWN MED DRAWER 7, Y5N ONE ×2 (05:21→07:01)
[2020-07-12] MEDS: AMOXICILLIN 500 MG CAPSULE (FP) PO SCH ×3 (06:45→21:08)
[2020-07-12] MEDS: NICOTINE 14 MG/24 HOURS TOPICAL PATCH TD SCH (10:00)
[2020-07-12] MEDS: PRENATAL VITAMINS W/ FOLIC ACID TABLET (FP) PO SCH (10:00)
[2020-07-12] MEDS: MINERAL OIL/PETROLAT/WATER TOPICAL CREAM 113 GM JAR TP SCH (15:55)
[2020-07-12] MEDS: THIAMINE HCL 100 MG TABLET (FP) PO SCH (21:06)
[2020-07-12] MEDS: QUEtiapine FUMARATE 50 MG TABLET PO SCH (21:06)
[2020-07-12] MEDS: MELATONIN 5 MG TABLETS PO SCH (21:08)
[2020-07-13] MEDS: AMOXICILLIN 500 MG CAPSULE (FP) PO SCH ×3 (06:55→21:30)
[2020-07-13] MEDS: NICOTINE 14 MG/24 HOURS TOPICAL PATCH TD SCH (10:59)
[2020-07-13] MEDS: PRENATAL VITAMINS W/ FOLIC ACID TABLET (FP) PO SCH (11:00)
[2020-07-13] MEDS: MINERAL OIL/PETROLAT/WATER TOPICAL CREAM 113 GM JAR TP SCH (11:01)
[2020-07-13] MEDS: QUEtiapine FUMARATE 50 MG TABLET PO SCH (21:30)
[2020-07-13] MEDS: THIAMINE HCL 100 MG TABLET (FP) PO SCH (21:31)
[2020-07-13] MEDS: MELATONIN 5 MG TABLETS PO SCH (21:32)
[2020-07-14] MEDS ORDERED: PT OWN MED DRAWER 7, Y5N ONE ×6 (03:16→22:13)
[2020-07-14] MEDS: AMOXICILLIN 500 MG CAPSULE (FP) PO SCH ×3 (06:45→21:15)
[2020-07-14] MEDS: NICOTINE 14 MG/24 HOURS TOPICAL PATCH TD SCH (09:16)
[2020-07-14] MEDS: COLLOIDAL OATMEAL 1 BAR EACH TP PRN (09:17)
[2020-07-14] MEDS: PRENATAL VITAMINS W/ FOLIC ACID TABLET (FP) PO SCH (09:17)
[2020-07-14] MEDS: MINERAL OIL/PETROLAT/WATER TOPICAL CREAM 113 GM JAR TP SCH (09:17)
[2020-07-14] MEDS: QUEtiapine FUMARATE 50 MG TABLET PO SCH (21:14)
[2020-07-14] MEDS: THIAMINE HCL 100 MG TABLET (FP) PO SCH (21:15)
[2020-07-14] MEDS: MELATONIN 5 MG TABLETS PO SCH (21:16)
[2020-07-15] MEDS: AMOXICILLIN 500 MG CAPSULE (FP) PO SCH ×3 (06:40→21:04)
[2020-07-15] MEDS: PRENATAL VITAMINS W/ FOLIC ACID TABLET (FP) PO SCH (10:24)
[2020-07-15] MEDS: MINERAL OIL/PETROLAT/WATER TOPICAL CREAM 113 GM JAR TP SCH (10:25)
[2020-07-15] MEDS: NICOTINE 14 MG/24 HOURS TOPICAL PATCH TD SCH (10:25)
[2020-07-15] MEDS ORDERED: PT OWN MED DRAWER 7, Y5N ONE (19:11)
[2020-07-15] MEDS: THIAMINE HCL 100 MG TABLET (FP) PO SCH (21:03)
[2020-07-15] MEDS: QUEtiapine FUMARATE 50 MG TABLET PO SCH (21:04)
[2020-07-15] MEDS: MELATONIN 5 MG TABLETS PO SCH (21:05)
[2020-07-16] MEDS: AMOXICILLIN 500 MG CAPSULE (FP) PO SCH ×2 (06:44→14:03)
[2020-07-16] MEDS: PRENATAL VITAMINS W/ FOLIC ACID TABLET (FP) PO SCH (10:18)
[2020-07-16] MEDS: NICOTINE 14 MG/24 HOURS TOPICAL PATCH TD SCH (10:19)
[2020-07-16] MEDS: MINERAL OIL/PETROLAT/WATER TOPICAL CREAM 113 GM JAR TP SCH (10:19)
[2020-07-16] MEDS ORDERED: MASKS NR ONE (18:39)
[2020-07-16] MEDS: THIAMINE HCL 100 MG TABLET (FP) PO SCH (21:23)
[2020-07-16] MEDS: MELATONIN 5 MG TABLETS PO SCH (21:23)
[2020-07-16] MEDS: QUEtiapine FUMARATE 50 MG TABLET PO SCH (21:23)
[2020-07-17] MEDS: NICOTINE 14 MG/24 HOURS TOPICAL PATCH TD SCH (10:24)
[2020-07-17] MEDS: PRENATAL VITAMINS W/ FOLIC ACID TABLET (FP) PO SCH (10:24)
[2020-07-17] MEDS: MINERAL OIL/PETROLAT/WATER TOPICAL CREAM 113 GM JAR TP SCH (10:25)
--- NOTE | 2020-07-17 14:16 | PN ---
[facility] Progress Note Note: Pt c/o labile itch and burning x 2 days after washing area with soap. Denies discharge or foul smell. Vital Signs - 24 hr 07/16/20 07/16/20 07/17/20 14:47 20:24 07:16 Temperature 97.6 F Pulse Rate 85 Respiratory 16 Rate Blood Pressure 104/62 O2 Sat by Pulse 98 98 99 Oximetry (%) Alert o x 3 nad oob ambulating with steady gait Outer vaginal discomfort symptom treatment Nystatin cream apply to affected area BID
[2020-07-17] MEDS ORDERED: PT OWN MED DRAWER 7, Y5N ONE (16:38)
[2020-07-17] MEDS: QUEtiapine FUMARATE 50 MG TABLET PO SCH (21:14)
[2020-07-17] MEDS: NYSTATIN 100,000 UNIT/GM TOPICAL CREAM 15 GM TUBE TP SCH (21:14)
[2020-07-17] MEDS: THIAMINE HCL 100 MG TABLET (FP) PO SCH (21:14)
[2020-07-17] MEDS: MELATONIN 5 MG TABLETS PO SCH (21:15)
[2020-07-18] MEDS ORDERED: PT OWN MED DRAWER 7, Y5N ONE (09:02)
[2020-07-18] MEDS: NYSTATIN 100,000 UNIT/GM TOPICAL CREAM 15 GM TUBE TP SCH ×2 (10:09→21:04)
[2020-07-18] MEDS: NICOTINE 14 MG/24 HOURS TOPICAL PATCH TD SCH (10:09)
[2020-07-18] MEDS: MINERAL OIL/PETROLAT/WATER TOPICAL CREAM 113 GM JAR TP SCH (10:09)
[2020-07-18] MEDS: PRENATAL VITAMINS W/ FOLIC ACID TABLET (FP) PO SCH (10:09)
[2020-07-18] MEDS: COLLOIDAL OATMEAL 1 BAR EACH TP PRN (10:11)
[2020-07-18] MEDS: THIAMINE HCL 100 MG TABLET (FP) PO SCH (21:04)
[2020-07-18] MEDS: QUEtiapine FUMARATE 50 MG TABLET PO SCH (21:04)
[2020-07-18] MEDS: MELATONIN 5 MG TABLETS PO SCH (21:05)
[2020-07-19] MEDS: NICOTINE 14 MG/24 HOURS TOPICAL PATCH TD SCH (09:59)
[2020-07-19] MEDS: PRENATAL VITAMINS W/ FOLIC ACID TABLET (FP) PO SCH (09:59)
[2020-07-19] MEDS: MINERAL OIL/PETROLAT/WATER TOPICAL CREAM 113 GM JAR TP SCH (10:00)
[2020-07-19] MEDS ORDERED: PT OWN MED DRAWER 7, Y5N ONE ×2 (10:00→19:53)
[2020-07-19] MEDS: NYSTATIN 100,000 UNIT/GM TOPICAL CREAM 15 GM TUBE TP SCH ×2 (10:01→21:13)
[2020-07-19] MEDS: MELATONIN 5 MG TABLETS PO SCH (21:13)
[2020-07-19] MEDS: QUEtiapine FUMARATE 50 MG TABLET PO SCH (21:13)
[2020-07-19] MEDS: THIAMINE HCL 100 MG TABLET (FP) PO SCH (21:14)
[2020-07-20] MEDS: PRENATAL VITAMINS W/ FOLIC ACID TABLET (FP) PO SCH (09:52)
[2020-07-20] MEDS: MINERAL OIL/PETROLAT/WATER TOPICAL CREAM 113 GM JAR TP SCH (09:52)
[2020-07-20] MEDS: NYSTATIN 100,000 UNIT/GM TOPICAL CREAM 15 GM TUBE TP SCH ×2 (09:52→21:10)
[2020-07-20] MEDS: NICOTINE 14 MG/24 HOURS TOPICAL PATCH TD SCH (09:52)
[2020-07-20] MEDS: THIAMINE HCL 100 MG TABLET (FP) PO SCH (21:09)
[2020-07-20] MEDS: QUEtiapine FUMARATE 50 MG TABLET PO SCH (21:09)
[2020-07-20] MEDS: MELATONIN 5 MG TABLETS PO SCH (21:10)
[2020-07-21] MEDS: NICOTINE 14 MG/24 HOURS TOPICAL PATCH TD SCH (09:57)
[2020-07-21] MEDS: MINERAL OIL/PETROLAT/WATER TOPICAL CREAM 113 GM JAR TP SCH (09:58)
[2020-07-21] MEDS: NYSTATIN 100,000 UNIT/GM TOPICAL CREAM 15 GM TUBE TP SCH ×2 (09:58→21:06)
[2020-07-21] MEDS: PRENATAL VITAMINS W/ FOLIC ACID TABLET (FP) PO SCH (09:58)
[2020-07-21] MEDS: IBUPROFEN 400 MG TABLET (FP) PO PRN ×2 (15:31→23:55)
[2020-07-21] MEDS: QUEtiapine FUMARATE 50 MG TABLET PO SCH (21:05)
[2020-07-21] MEDS: THIAMINE HCL 100 MG TABLET (FP) PO SCH (21:05)
[2020-07-21] MEDS: MELATONIN 5 MG TABLETS PO SCH (21:06)
[2020-07-22] MEDS: NICOTINE 14 MG/24 HOURS TOPICAL PATCH TD SCH (09:50)
[2020-07-22] MEDS: MINERAL OIL/PETROLAT/WATER TOPICAL CREAM 113 GM JAR TP SCH (09:50)
[2020-07-22] MEDS: NYSTATIN 100,000 UNIT/GM TOPICAL CREAM 15 GM TUBE TP SCH ×2 (09:50→21:06)
[2020-07-22] MEDS: PRENATAL VITAMINS W/ FOLIC ACID TABLET (FP) PO SCH (09:50)
--- NOTE | 2020-07-22 11:09 | PN ---
[facility] Progress Note Note: Patient is scheduled for discharge tomorrow. Script for 30 days supply of Seroquel 150 mg/hs will be electronically transmitted to [facility], [address] [place], [place] [id number]
[2020-07-22] MEDS: THIAMINE HCL 100 MG TABLET (FP) PO SCH (21:04)
[2020-07-22] MEDS: MELATONIN 5 MG TABLETS PO SCH (21:05)
[2020-07-22] MEDS: QUEtiapine FUMARATE 50 MG TABLET PO SCH (21:06)
[2020-07-22] MEDS: COLLOIDAL OATMEAL 1 BAR EACH TP PRN (21:07)
[2020-07-23 07:24] VITALS: BP 105/67; PULSE 94; TEMP 97.3
--- NOTE | 2020-07-23 08:49 | DS ---
[facility] Rehab Discharge Summary - [facility] Rehab Discharge Summary Admission Date: 07/04/20 Discharge Date: 07/23/20 - History Present History: Alcohol dependence, Cocaine dependence Pertinent Past History: Decreased Wt - Discharge Physical Exam Vital Signs: Vital Signs Temperature 97.3 F L 07/23/20 07:23 Pulse Rate 94 H 07/23/20 07:23 Respiratory Rate 18 07/23/20 07:23 Blood Pressure 105/67 07/23/20 07:23 O2 Sat by Pulse Oximetry (%) 99 07/23/20 07:23 Alert o x 3 nad oob ambulating with steady gait cardiac:s1 s2, rrr lung:ctab abdomen;soft,+bs,nt,nd extremities/skin;no edema,warm, skin intact. Pertinent Admission Physical Exam Findings: Laboratory Tests 07/04/20 07/05/20 07/05/20 18:50 08:10 08:10 WBC 5.8 RBC 3.89 Hgb 12.3 Hct 36.6 MCV 94.2 MCH 31.6 MCHC 33.6 RDW 13.3 Plt Count 267 D MPV 8.7 Sodium Potassium Chloride Carbon Dioxide Anion Gap BUN Creatinine Est GFR (CKD-EPI)AfAm Est GFR (CKD-EPI)NonAf Random Glucose Calcium Total Bilirubin AST ALT Alkaline Phosphatase Total Protein Albumin POC Urine HCG, Qual Negative Syphilis Serology Non-reactive COVID-19 ([facility]) HIV Ag/Ab Combo Qual 07/05/20 07/05/20 07/12/20 08:10 11:35 08:00 WBC RBC Hgb Hct MCV MCH MCHC RDW Plt Count MPV Sodium 143 Potassium 3.0 L Chloride 110 H Carbon Dioxide 28 Anion Gap 5 L BUN 9.3 Creatinine 0.6 Est GFR (CKD-EPI)AfAm 121.46 Est GFR (CKD-EPI)NonAf 104.80 Random Glucose 88 Calcium 9.0 Total Bilirubin 0.3 AST 15 ALT 21 Alkaline Phosphatase 67 Total Protein 5.9 L Albumin 3.0 L POC Urine HCG, Qual Syphilis Serology COVID-19 (MARC) Not detected HIV Ag/Ab Combo Qual Negative - Treatment Discharge Condition: Discharge condition good, Rehabilitated safely, Responded well, Outpatient referral accepted Hospital Course: Pt accepted CD aftercare to [facility] - Medication Discharge Medications: Ambulatory Orders Quetiapine Fumarate [Seroquel -] 150 mg PO HS #90 tablet 07/22/20 - Medication-Assisted Treatment (MAT) Medication-Assisted Treatment (MAT): No - Discharge Instructions Diet, activity, other medical instructions: Diet:Regular Activity: oob ad benjamin Other medical instructions:follow up with PCP at [facility], for medical management as needed. - Diagnosis (1) Anemia Status: Chronic Qualifiers: Iron deficiency anemia type: unspecified iron deficiency Qualified Code(s): D50.9 - Iron deficiency anemia, unspecified (2) Cocaine dependence Status: Chronic Qualifiers: Substance use status: uncomplicated Qualified Code(s): F14.20 - Cocaine dependence, uncomplicated (3) Underweight Status: Chronic (4) Gingivitis due to dental plaque Status: Acute - Follow-up Referral Minutes to complete discharge: 20 - AMA Did Patient Leave Against Medical Advice: No
[2020-07-23] MEDS ORDERED: PT OWN MED DRAWER 7, Y5N ONE (08:59)
[2020-07-23] MEDS: MINERAL OIL/PETROLAT/WATER TOPICAL CREAM 113 GM JAR TP SCH (09:03)
[2020-07-23] MEDS: PRENATAL VITAMINS W/ FOLIC ACID TABLET (FP) PO SCH (09:03)
[2020-07-23] MEDS: NICOTINE 14 MG/24 HOURS TOPICAL PATCH TD SCH (09:03)
[2020-07-23] MEDS: NYSTATIN 100,000 UNIT/GM TOPICAL CREAM 15 GM TUBE TP SCH (09:03)
== END 2020-07-23 09:15 | disposition home or self-care (01) | DRG 895 ==
LOC: YASAS 18:55 → Y3N 23:51 → Y3E 07-08 19:20
PROVIDERS: ADMIT Allergy & Immunology; ATTEND Allergy & Immunology
PROC: HZ2ZZZZ Detoxification Services for Substance Abuse Treatment (ICD-10-PCS; 2020-07-04)
PROC: HZ42ZZZ Group Counseling for Substance Abuse Treatment, Cognitive-Behavioral (ICD-10-PCS; principal; 2020-07-08)
DX: F10.20 Alcohol dependence, uncomplicated (principal); F14.20 Cocaine dependence, uncomplicated; Z68.1 Body mass index [BMI] 19.9 or less, adult; F17.210 Nicotine dependence, cigarettes, uncomplicated; F19.24 Other psychoactive substance dependence with psychoactive substance-induced mood disorder; F41.9 Anxiety disorder, unspecified; F31.9 Bipolar disorder, unspecified; G47.00 Insomnia, unspecified; D50.9 Iron deficiency anemia, unspecified; E87.6 Hypokalemia; H92.01 Otalgia, right ear; L29.2 Pruritus vulvae; K05.10 Chronic gingivitis, plaque induced; K59.00 Constipation, unspecified; K08.89 Other specified disorders of teeth and supporting structures; R63.6 Underweight; Z90.49 Acquired absence of other specified parts of digestive tract; Z56.0 Unemployment, unspecified
CPT/HCPCS: 36415; 80053; 81025; 85027; 86780; 87389; 93005; 93010; U0003